=== PATIENT | male | born 1960 | race Caucasian/White ===

== ENCOUNTER 2019-03-12 15:39 | Inpatient (IN) | payer MEDICAID ==
[2019-03-12] VITALS (7 sets, daily range): BP systolic 114–154; BP diastolic 98–121; PULSE 95–112; RESP 11–21; Ht 167.6 cm; Wt 65.0 kg
[~2019-03-12] VITALS: Ht 167.6 cm; Wt 65.0 kg
[2019-03-12] MEDS ORDERED: morphine 4 MG/ML VIAL IV STA (16:10)
[2019-03-12] MEDS ORDERED: ONDANSETRON 4 MG INJ IV STA (16:10)
[2019-03-12] MEDS ORDERED: SOD CHLORIDE 0.9% 1,000 ML IV STA (16:10)
[2019-03-12] MEDS ORDERED: SODIUM CHLORIDE 0.9% 1L BAG IV* STA (16:51)
[2019-03-12] MEDS ORDERED: CEFEPIME 2GM/50 ML (PMX) 50 ML IVPB STA (16:51)
[2019-03-12] MEDS ORDERED: VANCOMYCIN 1 GM (PMX) 250 ML IVPB ONE (17:00)
[2019-03-12] MEDS ORDERED: IOHEXOL 300MG/ML 150 ML BTL ONE (17:03)
[2019-03-12] MEDS ORDERED: SOD CHLORIDE 0.9% 100 ML ONE (17:03)
[2019-03-12] MEDS ORDERED: VANCOMYCIN IV PER PHARMACY XX SCH (18:00)
[2019-03-12] MEDS ORDERED: LORAZEPAM 2 MG INJ IV ONE (18:00)
[2019-03-12] MEDS ORDERED: HYDROCODONE/APAP (5/325) TAB PO PRN (18:00)
[2019-03-12] MEDS ORDERED: NACL 0.9% 3 ML SYG IV SCH (18:00)
[2019-03-12] MEDS ORDERED: morphine 2 MG INJ IV PRN ×2 (18:00→22:00)
[2019-03-12] MEDS ORDERED: ACETAMINOPHEN 325 MG TAB PO PRN (18:00)
[2019-03-12] MEDS ORDERED: ONDANSETRON 4 MG INJ IV PRN ×3 (18:00→22:00)
[2019-03-12] MEDS ORDERED: PIPER-TAZO 3.375 GM IV (PMX) 100 ML IVPB STA (18:29)
[2019-03-12] MEDS ORDERED: ACETAMINOPHEN 1000MG/100ML IV 100 ML IVPB PRN (18:30)
[2019-03-12] MEDS ORDERED: PIPER-TAZO 3.375 GM IV (PMX) 100 ML IVPB SCH (18:30)
--- NOTE | 2019-03-12 18:38 | ERD ---
ER Documentation Chief Complaint Chief Complaint BIB RA FOR EVAL OF AP NO BM X 3 DAYS. HPI This is a 58-year-old male that has no past medical history. The patient indicates he is been having severe abdominal pain for the past 4 days. He has not had a bowel movement but states he is also not had any oral intake. He states the pain is 10 out of 10 in intensity. The pain is worse when he moves. He denies any recent or remote blunt or penetrating abdominal wall trauma. 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 He had decreased urinary output. He did not take any analgesic medication prior to arrival. He indicated he has a similar onset of pain roughly 1 year ago but it spontaneously resolved. The pain does not radiate to the back. He has no chest pain. He has no shortness of breath. ROS All systems reviewed and are negative except as per history of present illness. Allergies Allergies: Coded Allergies: No Known Allergy (Unverified , 03/12/19) PMhx/Soc History of Surgery: No Anesthesia Reaction: No Hx Neurological Disorder: No Hx Respiratory Disorders: No Hx Cardiac Disorders: No Hx Psychiatric Problems: No Hx Miscellaneous Medical Probl: No Hx Alcohol Use: No Hx Substance Use: Yes (Marijuana, meth) Hx Tobacco Use: Yes Smoking Status: Current every day smoker Physical Exam Vitals Vital Signs Date Temp Pulse Resp B/P (MAP) Pulse Ox O2 O2 Flow FiO2 Time Delivery Rate 03/12/19 98.1 145 17 139/108 99 Room Air 16:14 (118) 03/12/19 98.1 89 17 134/89 99 15:49 (104) Physical Exam Constitutional:Well-developed. Disheveled HEENT:Normocephalic. Atraumatic.Pupils were equal round reactive to light. Very dry mucous membranes.No tonsillar exudates. Neck: No nuchal rigidity. No lymphadenopathy. No posterior cervical spine tenderness or step-offs. Respiratory: Not using accessory muscles of respiration.Lungs were clear to auscultation bilaterally. No rhonchi. No rales. No wheezing. Cardiovascular: Tachycardic with regular rhythm.No murmurs. No rubs were appreciated.S1, S2 normal. Distal pulses are palpable 2+ bilaterally. GI: Abdomen was soft. Diffuse abdominal tenderness. No pulsatile abdominal masses or bruits. Voluntary guarding. Positive rebound. Hypoactive bowel sounds per Muscle skeletal: Full range of motion of both the upper and lower extremities bilaterally.Normal muscle tone.No assymetrical calf tenderness or swelling. Skin: No petechia, no purpura. No lesions on the palms or the soles of the feet. No maculopapular rash. NEURO: Patient was alert, awake, orientated x3.No facial droop. Gait observed and normal with no ataxia.Speech had regular rate and rhythm. No focal neurological deficits. Result Diagram: 03/12/19 1625 03/12/19 1625 Results 24 hrs Laboratory Tests Test 03/12/19 16:25 03/12/19 16:52 03/12/19 17:01 White Blood Count 25.3 10^3/ul Red Blood Count 3.90 10^6/ul Hemoglobin 11.5 g/dl Hematocrit 35.0 % Mean Corpuscular Volume 89.7 fl Mean Corpuscular Hemoglobin 29.5 pg Mean Corpuscular 32.9 g/dl Hemoglobin Concent Red Cell Distribution Width 14.9 % Platelet Count 485 10^3/UL Mean Platelet Volume 9.4 fl Immature Granulocytes % 0.500 % Neutrophils % % Segmented Neutrophils % (Manual) 74 % Band Neutrophils % (Manual) 7 % Lymphocytes % % Lymphocytes % (Manual) 14 % Monocytes % % Monocytes % (Manual) 5 % Eosinophils % % Basophils % % Nucleated Red Blood Cells % 0.0 /100WBC Immature Granulocytes # 0.130 10^3/ul Neutrophils # 10^3/ul Neutrophils # (Manual) 19.2 10^3/ul Band Neutrophils # 1.7 10^3/ul Lymphocytes (Manual) 3.5 10^3/ul Lymphocytes # 10^3/ul Monocytes # 10^3/ul Monocytes # (Manual) 1.2 10^3/ul Eosinophils # 10^3/ul Basophils # 10^3/ul Nucleated Red Blood Cells # 10^3/ul Platelet Estimate NORMAL Polychromasia 1+ Poikilocytosis 2+ Macrocytosis 1+ Sodium Level 137 mmol/L Potassium Level 3.4 mmol/L Chloride Level 97 mmol/L Carbon Dioxide Level 25 mmol/L Anion Gap 15 Blood Urea Nitrogen 28 mg/dl Creatinine 1.00 mg/dl Est Glomerular Filtrat Rate mL/min > 60 mL/min Glucose Level 187 mg/dl Calcium Level 9.4 mg/dl Total Bilirubin 0.4 mg/dl Direct Bilirubin 0.00 mg/dl Indirect Bilirubin 0.4 mg/dl Aspartate Amino Transf (AST/SGOT) 24 IU/L Alanine 20 IU/L Aminotransferase (ALT/SGPT) Alkaline Phosphatase 69 IU/L Troponin I < 0.012 ng/ml Total Protein 7.2 g/dl Albumin 4.4 g/dl Globulin 2.80 g/dl Albumin/Globulin Ratio 1.57 Amylase Level 312 U/L Lipase 704 U/L Prothrombin Time 12.9 Sec Prothrombin Time Ratio 1.0 INR International Normalized Ratio 0.96 Activated Partial Thromboplast Pending Time POC Venous Lactate 3.2 mmol/L Current Medications Medications Dose Sig/Gaurav Start Time Status Last (Trade) Ordered Route PRN Stop Time Admin Dose Reason Admin Sodium 1,000 ml @ Q1H STAT 03/12/19 DC 03/12/19 Chloride 1,000 mls/hr IV 16:10 16:26 03/12/19 17:09 Morphine 4 mg ONCE STAT 03/12/19 DC 03/12/19 Sulfate IV 16:10 16:27 (morphine) 03/12/19 16:13 Ondansetron 4 mg ONCE STAT 03/12/19 DC 03/12/19 HCl (Zofran IV 16:10 16:27 Inj) 03/12/19 16:13 Sodium 1,950 ml BOLUS OVER 2 03/12/19 DC 03/12/19 Chloride HOURS STAT 16:51 17:17 (NS) IV* 03/12/19 16:53 Cefepime HCl 50 ml @ ONCE STAT 03/12/19 DC 03/12/19 100 mls/hr IVPB 16:51 17:36 03/12/19 17:20 Vancomycin 250 ml @ ONCE ONCE 03/12/19 03/12/19 HCl 125 mls/hr IVPB 17:00 17:37 03/12/19 18:59 IV Flush 10 ml STK-MED 03/12/19 DC 03/12/19 (NS 10 ml) ONCE .ROUTE 17:03 17:37 03/12/19 17:04 Sodium 100 ml @ ud STK-MED 03/12/19 DC 03/12/19 Chloride ONCE .ROUTE 17:03 17:37 03/12/19 17:04 Iohexol 150 ml STK-MED 03/12/19 DC 03/12/19 (Omnipaque ONCE .ROUTE 17:03 17:37 300mg/ ml) 03/12/19 17:04 Lorazepam 1 mg ONCE ONCE 03/12/19 DC (Ativan) IV 18:00 03/12/19 18:01 Piperacillin 100 ml @ Q6 IVPB 03/12/19 Sod/ 200 mls/hr 18:30 Tazobactam Sod Vancomycin VANCOMYCIN PER 03/12/19 UNV HCl (Vanco PER PHARMACY PROTOCOL XX 18:00 Iv Per Pharmacy) Potassium 100 ml @ Q2H IVPB 03/12/19 Chloride 50 mls/hr 18:00 03/12/19 21:59 Sodium 1,000 ml @ Q8H IV 03/12/19 Chloride 125 mls/hr 18:00 IV Flush 3 ml PER 03/12/19 (NS 3 ml) PROTOCOL IV 18:00 Ondansetron 4 mg Q6H PRN 03/12/19 HCl (Zofran IV 18:00 Inj) NAUSEA/VOMITI NG 650 mg Q6H PRN 03/12/19 Acetaminophen PO .PAIN 1-3 18:00 (Tylenol OR TEMP Tab) 1 tab Q6H PRN 03/12/19 Acetaminophen PO .PAIN 4-6 18:00 / Hydrocodone Bitart ([place] (5/325)) Morphine 2 mg Q4H PRN 03/12/19 Sulfate IV .PAIN 18:00 (morphine) 7-10 100 ml @ Q6H PRN 03/12/19 Acetaminophen 400 mls/hr IVPB pain or 18:30 fever above 03/13/19 18:29 100.5F Procedures/MDM This patient presented to the emergency department with abdominal pain and was seen and evaluated by myself. My differential diagnosis included but was not limited to abdominal aortic aneurysm, appendicitis, pancreatitis, perforated peptic ulcer, perforated viscus, Boerhaaves syndrome or visceral pain such as diverticulitis, DKA, esophagitis, hepatitis or bowel obstruction. The patient was placed on a quality assurance monitor final, continuous pulse oximetry, and IV access was established by nursing staff. The patient immediately was given intravenous morphine and Zofran for analgesia control as well as a liter bolus of normal saline. 12 Lead EKG tracing ordered and reviewed by myself showed: Sinus tachycardia 131 bpm and no arrhythmia. NE interval normal. QRS duration normal. No ST segment elevation No ST segment depression. No changes consistent with acute ischemia. The patient's ancillary laboratory work showed significant leukocytosis with white blood count of 25,000. At this time the patient had positive sirs criteria. POC lactate was elevated and the patient was treated for sepsis of unclear etiology. Patient's infectious symptoms have not stabilized and the patient is at risk of rapid decompensation. The patient will be admitted for careful hydration, antibiotic therapy, and infectious source control. Severe Sepsis Assessment: Infectious Source: Unknown End organ damage indicated by: Lactate > 2.0 mmol/L Severe Sepsis Managment: Blood Cultures X 2 before broad spectrum antibiotics initiated within 3 hours of recognition. 30 ml/kg NS bolus Completed Initial Lactate: 3.2 Repeat Lactate pending I considered further perfusion assessment with CVP measurement, SCVO2, bedside ultrasound volume assessment, passive leg raise, trial of further fluid bolus. And preceded with IV fluids Chest radiograph showed no infiltrates or pneumothorax and no free air underneath the diaphragm. CT scan of the abdomen indicate the patient had pneumoperitoneum. This was present in the upper abdomen that could likely be result of a ruptured viscus. Diffuse ascites was seen with peritoneal enhancement. The patient already received vancomycin and cefepime but was started on broad-spectrum antibiotics which included Zosyn. At this time 2 large-bore IV catheters were placed. The patient was alert and awake. I spoke with the surgeon Dr. Artis. The patient will be going to the operating room at 8 PM. He will be admitted under the care of on day to the intensive care unit in serious condition with anticipated stay of greater than 2-midnights. Critical Care: Time: 95 minutes Treatments/Evaluations: Close monitoring and treatment of unstable vital signs, cardiorespiratory, and neurologic status, while maintaining tight balance of fluid, respiratory, and cardiac interventions. Time does not include performing any of the above billable procedures. Departure Diagnosis: Primary Impression: Pneumoperitoneum Additional Impressions: Perforated abdominal viscus Sepsis Sepsis type: sepsis due to unspecified organism Qualified Codes: A41.9 - Sepsis, unspecified organism Condition: Serious GUY FABIAN MD Mar 12, 2019 18:38
[2019-03-12] MEDS: POTASSIUM CHLORIDE 100 ML IVPB SCH ×2 (19:50→20:00)
[2019-03-12] MEDS ORDERED: PROPOFOL 20 ML ONE (20:09)
[2019-03-12] MEDS ORDERED: FENTAnyl 50 MCG/ML VIAL ONE ×2 (20:09→21:55)
[2019-03-12] MEDS ORDERED: SUCCINYLCHOLINE CHLORIDE 100 MG/5 ML SYG IV ONE (20:09)
[2019-03-12] MEDS ORDERED: ROCURONIUM 50 MG INJ ONE (20:09)
[2019-03-12] MEDS ORDERED: LIDOCAINE 100 MG SYRINGE ONE (20:09)
[2019-03-12] MEDS ORDERED: MIDAZOLAM 1 MG/ML 2 ML INJ ONE (20:10)
--- NOTE | 2019-03-12 20:22 | PREAC ---
Date/Time of Note Date/Time of Note DATE: 03/12/19 TIME: 20:20 Anesthesia Eval and Record Evaluation Time Pre-Procedure Interview DATE: 03/12/19 TIME: 20:20 Age 58 Sex male NPO: 8 hrs Preoperative diagnosis perforated viscus Planned procedure exploratory laparotomy Past Medical History Past Medical History: Includes Cardio: HTN Recreational drugs: Marijuana, Other (methamphetamine. Pt looks to be going through withdrawal) Surgery & Anesthesia Issues No known issue Meds Anticoagulation: No Beta Racquel within 24 hr: No Reason Beta Racquel not given: Pt. not on B-Racquel Current Medications Vancomycin HCl (Vanco Iv Per Pharmacy) VANCOMYCIN PER PHARMACY PER PROTOCOL XX ; Start 03/12/19 at 18:00 Potassium Chloride 100 ml @ 50 mls/hr Q2H IVPB Last administered on 03/12/19at 19:50; Admin Dose 50 MLS/HR; Start 03/12/19 at 18:00; Stop 03/12/19 at 21:59 Sodium Chloride 1,000 ml @ 125 mls/hr Q8H IV ; Start 03/12/19 at 18:00 IV Flush (NS 3 ml) 3 ml PER PROTOCOL IV ; Start 03/12/19 at 18:00 Ondansetron HCl (Zofran Inj) 4 mg Q6H PRN IV NAUSEA/VOMITING; Start 03/12/19 at 18:00 Acetaminophen (Tylenol Tab) 650 mg Q6H PRN PO .PAIN 1-3 OR TEMP; Start 03/12/19 at 18:00 Acetaminophen/ Hydrocodone Bitart ([place] (5/325)) 1 tab Q6H PRN PO .PAIN 4-6; Start 03/12/19 at 18:00 Morphine Sulfate (morphine) 2 mg Q4H PRN IV .PAIN 7-10; Start 03/12/19 at 18:00 Acetaminophen 100 ml @ 400 mls/hr Q6H PRN IVPB pain or fever above 100.5F; Start 03/12/19 at 18:30; Stop 03/13/19 at 18:29 Vancomycin/Sodium Chloride 250 ml @ 125 mls/hr Q12H IVPB ; Start 03/13/19 at 03:00 Piperacillin Sod/ Tazobactam Sod 100 ml @ 200 mls/hr Q6 IVPB ; Start 03/13/19 at 00:00 Meds reviewed: Yes Allergies Coded Allergies: No Known Allergy (Unverified , 03/12/19) Allergies Reviewed: Yes Labs/Studies Labs Reviewed: Reviewed by anesthesiologist Result Diagram: 03/12/19 1625 03/12/19 1625 Laboratory Tests 03/12/19 16:25 test: N/A Pre-procedure Exam Last vitals Vital Signs Date Temp Pulse Resp B/P (MAP) Pulse Ox O2 O2 Flow FiO2 Time Delivery Rate 03/12/19 98.1 145 17 139/108 99 Room Air 16:14 (118) Airway: Adequate mouth opening, Adequate thyromental dist Mallampati: Mallampati II Teeth: Abnormal Lung: Abnormal Heart: Abnormal ASA Physical Status ASA physical status: 3 Emergency: E Planned Anesthetic General/MAC: ETT Nerve block: TAP (bilateral) Pre-operative Attestations Prior to commencing anesthesia and surgery, the patient was re-evaluated, there was verification of: *The patient's identity *The results of appropriate recent lab work and preoperative vital signs *The above evaluation not changing prior to induction *Anesthetic plan, risk benefits, alternative and complications discussed with patient/family; questions answered; patient/family understands, accepts and wishes to proceed. AZUL STEPHENSON Mar 12, 2019 20:22
--- NOTE | 2019-03-12 20:28 | CONS ---
Assessment/Plan Assessment/Plan Assessment/Plan (Daily) Perforated viscus with pneumoperitoneum Plan: Urgent exploratory laparotomy. Findings at surgery will dictate specifically the procedure. This will arrange anywhere from a plication of ulcer to bowel resection with possible colostomy. I have discussed the procedure, indications, alternatives and risks with the patient who has given an informed consent. Consultation Date/Type/Reason Admit Date/Time Mar 12, 2019 at 18:29 Date of Consultation: Mar 12, 2019 Type of Consult General surgery Reason for Consultation Perforated viscus and pneumoperitoneum Date/Time of Note DATE: 03/12/19 TIME: 20:24 Hx of Present Illness The patient is a 58-year-old gentleman who uses crystal meth. Presents with severe abdominal pain. He was noted to be diffusely tender in the emergency room with a white count of 25,000. A CT scan shows a pneumoperitoneum. Review of systems: Head ears eyes nose and throat: Unremarkable Pulmonary: No history of asthma, pneumonia or shortness of breath Cardiac: No history of chest pain IA or arrhythmia Abdomen: As in the HPI : Asymptomatic Past Medical History Medical History: no pertinent history Medications Current Medications Vancomycin HCl (Vanco Iv Per Pharmacy) VANCOMYCIN PER PHARMACY PER PROTOCOL XX ; Start 03/12/19 at 18:00 Potassium Chloride 100 ml @ 50 mls/hr Q2H IVPB Last administered on 03/12/19at 19:50; Admin Dose 50 MLS/HR; Start 03/12/19 at 18:00; Stop 03/12/19 at 21:59 Sodium Chloride 1,000 ml @ 125 mls/hr Q8H IV ; Start 03/12/19 at 18:00 IV Flush (NS 3 ml) 3 ml PER PROTOCOL IV ; Start 03/12/19 at 18:00 Ondansetron HCl (Zofran Inj) 4 mg Q6H PRN IV NAUSEA/VOMITING; Start 03/12/19 at 18:00 Acetaminophen (Tylenol Tab) 650 mg Q6H PRN PO .PAIN 1-3 OR TEMP; Start 03/12/19 at 18:00 Acetaminophen/ Hydrocodone Bitart ([place] (5/325)) 1 tab Q6H PRN PO .PAIN 4-6; Start 03/12/19 at 18:00 Morphine Sulfate (morphine) 2 mg Q4H PRN IV .PAIN 7-10; Start 03/12/19 at 18:00 Acetaminophen 100 ml @ 400 mls/hr Q6H PRN IVPB pain or fever above 100.5F; Start 03/12/19 at 18:30; Stop 03/13/19 at 18:29 Vancomycin/Sodium Chloride 250 ml @ 125 mls/hr Q12H IVPB ; Start 03/13/19 at 03:00 Piperacillin Sod/ Tazobactam Sod 100 ml @ 200 mls/hr Q6 IVPB ; Start 03/13/19 at 00:00 Hydromorphone HCl (Dilaudid) 0.2 mg PACU PRN IV MILD PAIN 1-3; Start 03/12/19 at 20:30; Status UNV Hydromorphone HCl (Dilaudid) 0.4 mg PACU PRN IV MOD PAIN 4-6; Start 03/12/19 at 20:30; Status UNV Hydromorphone HCl (Dilaudid) 0.6 mg PACU PRN IV SEVERE PAIN 7-10; Start 03/12/19 at 20:30; Status UNV Fentanyl (Sublimaze) 25 mcg PACU ORDER PRN IV MILD PAIN 1-3; Start 03/12/19 at 20:30; Status UNV Fentanyl (Sublimaze) 50 mcg PACU ORDER PRN IV MOD PAIN 4-6; Start 03/12/19 at 20:30; Status UNV Fentanyl (Sublimaze) 75 mcg PACU ORDER PRN IV SEVERE PAIN 7-10; Start 03/12/19 at 20:30; Status UNV Ondansetron HCl (Zofran Inj) 4 mg PACU ORDER PRN IV NAUSEA/VOMITING; Start 03/12/19 at 20:30; Status UNV Metoclopramide HCl (Reglan) 10 mg PACU ORDER PRN IV NAUSEA/VOMITING; Start 03/12/19 at 20:30; Status UNV Labetalol HCl (Labetalol) 5 mg PACU ORDER PRN IV HIGH BLOOD PRESSURE; Start 03/12/19 at 20:30; Status UNV Hydralazine HCl (Apresoline) 5 mg PACU ORDER PRN IV HIGH BLOOD PRESSURE; Start 03/12/19 at 20:30; Status UNV Albuterol (Proventil 0.083% (Neb)) 2.5 mg PACU ORDER PRN HHN .WHEEZING; Start 03/12/19 at 20:30; Status UNV Meperidine HCl (Demerol) 25 mg PACU ORDER PRN IV .RIGORS; Start 03/12/19 at 20:30; Status UNV Diphenhydramine HCl (Benadryl) 25 mg PACU ORDER PRN IV .PRURITUS; Start 03/12/19 at 20:30; Status UNV Allergies: Coded Allergies: No Known Allergy (Unverified , 03/12/19) Past Surgical History Past Surgical Hx: no surgical history Family History Significant Family History: no pertinent family hx Social History Smoking Status: Current every day smoker Drug Use: other (Crystal meth) Exam/Review of Systems Exam Vitals Vital Signs Date Temp Pulse Resp B/P (MAP) Pulse Ox O2 O2 Flow FiO2 Time Delivery Rate 03/12/19 98.1 145 17 139/108 99 Room Air 16:14 (118) Constitutional: alert, oriented Psych: no complaints Head: normocephalic Eyes: nl conjunctiva ENMT: nl external ears & nose Neck: supple Respiratory: clear to auscultation Cardiovascular: regular rate and rhythm Gastrointestinal: firm, tender (Diffuse tenderness with guarding and rebound) Musculoskeletal: nl extremities to inspection Extremities: normal pulses Neurological: MOLD CHIPPER II-XII intact Skin: nl turgor Results Result Diagram: 03/12/19 1625 03/12/19 1625 Results 24hrs Laboratory Tests Test 03/12/19 16:25 03/12/19 16:52 03/12/19 17:01 03/12/19 19:08 White Blood Count 25.3 H Red Blood Count 3.90 L Hemoglobin 11.5 L Hematocrit 35.0 L Mean Corpuscular 89.7 Volume Mean Corpuscular 29.5 Hemoglobin Mean Corpuscular 32.9 Hemoglobin Concent Red Cell 14.9 H Distribution Width Platelet Count 485 H Mean Platelet Volume 9.4 Immature 0.500 H Granulocytes % Neutrophils % Segmented 74 Neutrophils % (Manual) Band Neutrophils % 7 H (Manual) Lymphocytes % Lymphocytes % 14 L (Manual) Monocytes % Monocytes % (Manual) 5 Eosinophils % Basophils % Nucleated Red Blood 0.0 Cells % Immature 0.130 H Granulocytes # Neutrophils # Neutrophils # 19.2 H (Manual) Band Neutrophils # 1.7 H Lymphocytes (Manual) 3.5 H Lymphocytes # Monocytes # Monocytes # (Manual) 1.2 H Eosinophils # Basophils # Nucleated Red Blood Cells # Platelet Estimate NORMAL Polychromasia 1+ Poikilocytosis 2+ Macrocytosis 1+ Sodium Level 137 Potassium Level 3.4 L Chloride Level 97 Carbon Dioxide Level 25 Anion Gap 15 H Blood Urea Nitrogen 28 H Creatinine 1.00 Est Glomerular > 60 Filtrat Rate mL/min Glucose Level 187 Calcium Level 9.4 Total Bilirubin 0.4 Direct Bilirubin 0.00 Indirect Bilirubin 0.4 Aspartate Amino 24 Transf (AST/SGOT) Alanine 20 Aminotransferase (AL T/SGPT) Alkaline Phosphatase 69 Troponin I < 0.012 Total Protein 7.2 Albumin 4.4 Globulin 2.80 Albumin/Globulin 1.57 Ratio Amylase Level 312 H Lipase 704 H Ethyl Alcohol Level < 10.0 H Prothrombin Time 12.9 Prothrombin Time 1.0 Ratio INR International 0.96 Normalized Ratio Activated 22.4 L Partial Thromboplast Time POC Venous Lactate 3.2 *H 3.3 *H Medications Medication Current Medications Vancomycin HCl (Vanco Iv Per Pharmacy) VANCOMYCIN PER PHARMACY PER PROTOCOL XX ; Start 03/12/19 at 18:00 Potassium Chloride 100 ml @ 50 mls/hr Q2H IVPB Last administered on 03/12/19at 19:50; Admin Dose 50 MLS/HR; Start 03/12/19 at 18:00; Stop 03/12/19 at 21:59 Sodium Chloride 1,000 ml @ 125 mls/hr Q8H IV ; Start 03/12/19 at 18:00 IV Flush (NS 3 ml) 3 ml PER PROTOCOL IV ; Start 03/12/19 at 18:00 Ondansetron HCl (Zofran Inj) 4 mg Q6H PRN IV NAUSEA/VOMITING; Start 03/12/19 at 18:00 Acetaminophen (Tylenol Tab) 650 mg Q6H PRN PO .PAIN 1-3 OR TEMP; Start 03/12/19 at 18:00 Acetaminophen/ Hydrocodone Bitart ([place] (5/325)) 1 tab Q6H PRN PO .PAIN 4-6; Start 03/12/19 at 18:00 Morphine Sulfate (morphine) 2 mg Q4H PRN IV .PAIN 7-10; Start 03/12/19 at 18:00 Acetaminophen 100 ml @ 400 mls/hr Q6H PRN IVPB pain or fever above 100.5F; Start 03/12/19 at 18:30; Stop 03/13/19 at 18:29 Vancomycin/Sodium Chloride 250 ml @ 125 mls/hr Q12H IVPB ; Start 03/13/19 at 03:00 Piperacillin Sod/ Tazobactam Sod 100 ml @ 200 mls/hr Q6 IVPB ; Start 03/13/19 at 00:00 Hydromorphone HCl (Dilaudid) 0.2 mg PACU PRN IV MILD PAIN 1-3; Start 03/12/19 at 20:30; Status UNV Hydromorphone HCl (Dilaudid) 0.4 mg PACU PRN IV MOD PAIN 4-6; Start 03/12/19 at 20:30; Status UNV Hydromorphone HCl (Dilaudid) 0.6 mg PACU PRN IV SEVERE PAIN 7-10; Start 03/12/19 at 20:30; Status UNV Fentanyl (Sublimaze) 25 mcg PACU ORDER PRN IV MILD PAIN 1-3; Start 03/12/19 at 20:30; Status UNV Fentanyl (Sublimaze) 50 mcg PACU ORDER PRN IV MOD PAIN 4-6; Start 03/12/19 at 20:30; Status UNV Fentanyl (Sublimaze) 75 mcg PACU ORDER PRN IV SEVERE PAIN 7-10; Start 03/12/19 at 20:30; Status UNV Ondansetron HCl (Zofran Inj) 4 mg PACU ORDER PRN IV NAUSEA/VOMITING; Start 03/12/19 at 20:30; Status UNV Metoclopramide HCl (Reglan) 10 mg PACU ORDER PRN IV NAUSEA/VOMITING; Start 03/12/19 at 20:30; Status UNV Labetalol HCl (Labetalol) 5 mg PACU ORDER PRN IV HIGH BLOOD PRESSURE; Start 03/12/19 at 20:30; Status UNV Hydralazine HCl (Apresoline) 5 mg PACU ORDER PRN IV HIGH BLOOD PRESSURE; Start 03/12/19 at 20:30; Status UNV Albuterol (Proventil 0.083% (Neb)) 2.5 mg PACU ORDER PRN HHN .WHEEZING; Start 03/12/19 at 20:30; Status UNV Meperidine HCl (Demerol) 25 mg PACU ORDER PRN IV .RIGORS; Start 03/12/19 at 20:30; Status UNV Diphenhydramine HCl (Benadryl) 25 mg PACU ORDER PRN IV .PRURITUS; Start 03/12/19 at 20:30; Status UNV SONAL TRUONG MD Mar 12, 2019 20:28
[2019-03-12] MEDS ORDERED: LABETALOL HCL 20MG INJ IV PRN (20:30)
[2019-03-12] MEDS ORDERED: DIPHENHYDRAMINE 50 MG INJ IV PRN (20:30)
[2019-03-12] MEDS ORDERED: hydrALAzine 20 MG INJ IV PRN (20:30)
[2019-03-12] MEDS ORDERED: FENTAnyl 50 MCG/ML VIAL IV PRN ×3 (20:30)
[2019-03-12] MEDS ORDERED: METOCLOPRAMIDE 10 MG INJ IV PRN (20:30)
[2019-03-12] MEDS ORDERED: MEPERIDINE 25 MG INJ IV PRN (20:30)
[2019-03-12] MEDS ORDERED: HYDROmorphONE 1 MG/5 ML IV SYRINGE IV PRN ×3 (20:30)
[2019-03-12] MEDS ORDERED: ALBUTEROL 0.083% (NEB) 2.5 MG/3 ML AMP HHN PRN (20:30)
[2019-03-12] MEDS ORDERED: PHENYLephrine (100 MCG/ML) 10ML SYG ONE (20:38)
[2019-03-12] MEDS ORDERED: VASOPRESSIN 20 UNITS INJ ONE (20:42)
[2019-03-12] MEDS ORDERED: METHYLENE BLUE 50 MG/10 ML AMPUL ONE (21:16)
[2019-03-12] MEDS ORDERED: SUGAMMADEX SODIUM 200 MG/2 ML VIAL IV ONE (21:32)
[2019-03-12] MEDS ORDERED: ROPIVACAINE 0.5 % 30 ML VIAL ONE (21:37)
--- NOTE | 2019-03-12 21:48 | OPR ---
Date/Time of Note Date/Time of Note DATE: 03/12/19 TIME: 21:43 Operative Report Procedure Date: Mar 12, 2019 Preoperative Diagnosis Perforated viscus and pneumoperitoneum Postoperative Diagnosis Perforated duodenal ulcer with pneumoperitoneum Operation/Procedure Performed Oversew and plication of perforated duodenal ulcer Surgeon Sonal Truong MD Bank Cashier None Anesthesia Type: general Anesthesiologist: AZUL STEPHENSON Estimated Blood Loss: minimal Transfusion none Specimen Culture and sensitivity Grafts/Implants none Tubes/Drains #19 Round Luisito drain Complications none Pt Condition Post Procedure: stable Disposition: other (ICU) Indications Peritonitis Procedure Description After satisfactory general endotracheal anesthesia was achieved, the abdomen was entered through upper vertical midline incision. A moderate amount of turgid fluid was encountered. This was cultured aerobically and anaerobically and suctioned off. The source of the fluid was a 6 mm perforation of the anterior duodenum. This was primarily closed with several sutures of interrupted full- thickness 3-0 silk suture. Next a tongue of omentum was placed on the suture line as a patch and was secured in place with the tails of the silk sutures. The abdomen was then irrigated. The stomach was then filled with 250 cc of methylene blue and water. The resultant plication and patch was watertight. Through a separate stab in the right upper quadrant and #19 round Luisito drain was placed and secured to skin with 3-0 silk. The abdomen was closed en harris with 2 running sutures of #2 Vicryl. Skin was closed with tiera. Sponge, needle, and instrument counts were reported as correct x2. SONAL TRUONG MD Mar 12, 2019 21:48
[2019-03-12] MEDS ORDERED: OXYCODONE/ACETAMINOPHEN (5/325) TAB PO PRN ×2 (22:00)
[2019-03-12] MEDS: PIPER-TAZO 3.375 GM IV (PMX) 100 ML IVPB SCH (23:16)
[2019-03-12] MEDS: SOD CHLORIDE 0.9% 1,000 ML IV SCH (23:16)
[2019-03-12] MEDS ORDERED: POTASSIUM CHLORIDE 100 ML IVPB SCH (23:30)
--- NOTE | 2019-03-12 23:38 | HP ---
Date/Time of Note Date/Time of Note DATE: 03/12/19 TIME: 23:38 Assessment/Plan VTE Prophylaxis SCD applied (from Nsg): Yes Pharmacological prophylaxis: NA/contraindicated Pharm contraindication: other (Patient has had a surgery for rupture of duodenal ulcer ) Lines/Catheters IV Catheter Type (from Nrsg): A Line Urinary Cath still in place: Yes Reason Cath still needed: terminal illness/intractable pain Assessment/Plan Assessment/Plan 1. Perforated duodenal ulcer and pneumoperitoneum: Status post a surgical repair. The patient is in stable condition -Patient has not passed gas yet. Will start diet when appropriate -Follow-up surgery recommendations 2. SIRS, with possible sepsis: See #1 -IV antibiotic -Follow culture results Result Diagram: 03/12/19 1625 03/12/19 1625 Results 24hrs Laboratory Tests Test 03/12/19 16:25 03/12/19 16:52 03/12/19 17:01 03/12/19 19:08 White Blood Count 25.3 H Red Blood Count 3.90 L Hemoglobin 11.5 L Hematocrit 35.0 L Mean Corpuscular 89.7 Volume Mean Corpuscular 29.5 Hemoglobin Mean Corpuscular 32.9 Hemoglobin Concent Red Cell 14.9 H Distribution Width Platelet Count 485 H Mean Platelet Volume 9.4 Immature 0.500 H Granulocytes % Neutrophils % Segmented 74 Neutrophils % (Manual) Band Neutrophils % 7 H (Manual) Lymphocytes % Lymphocytes % 14 L (Manual) Monocytes % Monocytes % (Manual) 5 Eosinophils % Basophils % Nucleated Red Blood 0.0 Cells % Immature 0.130 H Granulocytes # Neutrophils # Neutrophils # 19.2 H (Manual) Band Neutrophils # 1.7 H Lymphocytes (Manual) 3.5 H Lymphocytes # Monocytes # Monocytes # (Manual) 1.2 H Eosinophils # Basophils # Nucleated Red Blood Cells # Platelet Estimate NORMAL Polychromasia 1+ Poikilocytosis 2+ Macrocytosis 1+ Sodium Level 137 Potassium Level 3.4 L Chloride Level 97 Carbon Dioxide Level 25 Anion Gap 15 H Blood Urea Nitrogen 28 H Creatinine 1.00 Est Glomerular > 60 Filtrat Rate mL/min Glucose Level 187 Calcium Level 9.4 Total Bilirubin 0.4 Direct Bilirubin 0.00 Indirect Bilirubin 0.4 Aspartate Amino 24 Transf (AST/SGOT) Alanine 20 Aminotransferase (AL T/SGPT) Alkaline Phosphatase 69 Troponin I < 0.012 Total Protein 7.2 Albumin 4.4 Globulin 2.80 Albumin/Globulin 1.57 Ratio Amylase Level 312 H Lipase 704 H Ethyl Alcohol Level < 10.0 H Prothrombin Time 12.9 Prothrombin Time 1.0 Ratio INR International 0.96 Normalized Ratio Activated 22.4 L Partial Thromboplast Time POC Venous Lactate 3.2 *H 3.3 *H Test 03/12/19 22:34 Lactic Acid Level 2.4 *H HPI/ROS Admit Date/Time Admit Date/Time Mar 12, 2019 at 18:29 Hx of Present Illness This is a 58-year-old male with a history of methamphetamine abuse who presented to ER complaining of abdominal pain for the past 3 days. Pain is been diffuse. In the ER he is found to have pneumoperitoneum and perforated viscus. Initial white count 25,000. Lactic acid was elevated. Patient was taken to the OR and had repair of perforated duodenal ulcer. Patient is currently admitted to ICU postop and is in stable condition. He is asking for food, but he said he has not passed gas even though he wants to. His abdomen however soft with hypoactive bowel sounds. PMH/Family/Social Past Medical History Medical History: no pertinent history, other (See HPI) Medications Current Medications Vancomycin HCl (Vanco Iv Per Pharmacy) VANCOMYCIN PER PHARMACY PER PROTOCOL XX ; Start 03/12/19 at 18:00 Sodium Chloride 1,000 ml @ 125 mls/hr Q8H IV Last administered on 03/12/19at 23:16; Admin Dose 125 MLS/HR; Start 03/12/19 at 18:00 IV Flush (NS 3 ml) 3 ml PER PROTOCOL IV ; Start 03/12/19 at 18:00 Ondansetron HCl (Zofran Inj) 4 mg Q6H PRN IV NAUSEA/VOMITING; Start 03/12/19 at 18:00 Acetaminophen (Tylenol Tab) 650 mg Q6H PRN PO .PAIN 1-3 OR TEMP; Start 03/12/19 at 18:00 Acetaminophen/ Hydrocodone Bitart ([place] (5/325)) 1 tab Q6H PRN PO .PAIN 4-6; Start 03/12/19 at 18:00 Morphine Sulfate (morphine) 2 mg Q4H PRN IV .PAIN 7-10; Start 03/12/19 at 18:00 Acetaminophen 100 ml @ 400 mls/hr Q6H PRN IVPB pain or fever above 100.5F; St art 03/12/19 at 18:30; Stop 03/13/19 at 18:29 Vancomycin/Sodium Chloride 250 ml @ 125 mls/hr Q12H IVPB ; Start 03/13/19 at 03:00 Piperacillin Sod/ Tazobactam Sod 100 ml @ 200 mls/hr Q6 IVPB Last administered on 03/12/19at 23:16; Admin Dose 200 MLS/HR; Start 03/13/19 at 00:00 Hydromorphone HCl (Dilaudid) 0.2 mg PACU PRN IV MILD PAIN 1-3; Start 03/12/19 at 20:30; Stop 03/13/19 at 02:00 Hydromorphone HCl (Dilaudid) 0.4 mg PACU PRN IV MOD PAIN 4-6; Start 03/12/19 at 20:30; Stop 03/13/19 at 02:00 Hydromorphone HCl (Dilaudid) 0.6 mg PACU PRN IV SEVERE PAIN 7-10; Start 03/12/19 at 20:30; Stop 03/13/19 at 02:00 Fentanyl (Sublimaze) 25 mcg PACU ORDER PRN IV MILD PAIN 1-3; Start 03/12/19 at 20:30; Stop 03/13/19 at 02:00 Fentanyl (Sublimaze) 50 mcg PACU ORDER PRN IV MOD PAIN 4-6; Start 03/12/19 at 2 0:30; Stop 03/13/19 at 02:00 Fentanyl (Sublimaze) 75 mcg PACU ORDER PRN IV SEVERE PAIN 7-10; Start 03/12/19 at 20:30; Stop 03/13/19 at 02:00 Ondansetron HCl (Zofran Inj) 4 mg PACU ORDER PRN IV NAUSEA/VOMITING; Start 03/12/19 at 20:30; Stop 03/13/19 at 02:00 Metoclopramide HCl (Reglan) 10 mg PACU ORDER PRN IV NAUSEA/VOMITING; Start 03/12/19 at 20:30; Stop 03/13/19 at 02:00 Labetalol HCl (Labetalol) 5 mg PACU ORDER PRN IV HIGH BLOOD PRESSURE; Start 03/12/19 at 20:30; Stop 03/13/19 at 02:00 Hydralazine HCl (Apresoline) 5 mg PACU ORDER PRN IV HIGH BLOOD PRESSURE; Start 03/12/19 at 20:30; Stop 03/13/19 at 02:00 Albuterol (Proventil 0.083% (Neb)) 2.5 mg PACU ORDER PRN HHN .WHEEZING; Start 03/12/19 at 20:30; Stop 03/13/19 at 02:00 Meperidine HCl (Demerol) 25 mg PACU ORDER PRN IV .RIGORS; Start 03/12/19 at 20:30; Stop 03/13/19 at 02:00 Diphenhydramine HCl (Benadryl) 25 mg PACU ORDER PRN IV .PRURITUS; Start 03/12/19 at 20:30; Stop 03/13/19 at 02:00 Oxycodone/ Acetaminophen (Percocet (5/ 325)) 1 tab Q4H PRN PO .MILD PAIN (1-3); Start 03/12/19 at 22:00 Oxycodone/ Acetaminophen (Percocet (5/ 325)) 2 tab Q4H PRN PO .MODERATE PAIN (4-6); Start 03/12/19 at 22:00 Ondansetron HCl (Zofran Inj) 4 mg Q6H PRN IV NAUSEA/VOMITING; Start 03/12/19 at 22:00 Pantoprazole (Protonix Iv) 40 mg Q12 ONCE IV ; Start 03/13/19 at 09:00; Stop 03/13/19 at 09:01 Potassium Chloride 100 ml @ 50 mls/hr Q2H IVPB ; Start 03/12/19 at 23:30; Stop 03/13/19 at 01:29 Coded Allergies: No Known Allergy (Unverified , 03/12/19) Past Surgical History Past Surgical Hx: other (See HPI) Family History Significant Family History: no pertinent family hx Social History Alcohol Use: occasionally Smoking Status: Current every day smoker Drug Use: other (Crystal meth) Exam/Review of Systems Vital Signs Vitals Vital Signs Date Temp Pulse Resp B/P (MAP) Pulse Ox O2 O2 Flow FiO2 Time Delivery Rate 03/12/19 102 14 117/98 98 22:45 (104) 03/12/19 98.0 22:18 03/12/19 Room Air 22:15 Exam Constitutional: alert, oriented, well developed Head: normocephalic, atraumatic Eyes: EOMI, PERRL Respiratory: clear to auscultation, normal air movement Cardiovascular: other (Tachycardic with regular rhythm) Gastrointestinal: soft, surgical scars Extremities: normal pulses CHERRIE BRAGG MD Mar 12, 2019 23:38
[2019-03-13] VITALS (28 sets, daily range): BP systolic 91–148; BP diastolic 79–110; PULSE 85–109; RESP 13–21
[2019-03-13] MEDS ORDERED: PIPER-TAZO 3.375 GM IV (PMX) 100 ML IVPB SCH
[2019-03-13] MEDS: SOD CHLORIDE 0.9% 1,000 ML IV SCH ×3 (02:00→13:41)
[2019-03-13] MEDS: VANCOMYCIN 750 MG (PMX) 250 ML IVPB SCH ×2 (04:23→15:31)
[2019-03-13] MEDS ORDERED: PANTOPRAZOLE 40 MG INJ IV ONE (06:00)
[2019-03-13] MEDS: PIPER-TAZO 3.375 GM IV (PMX) 100 ML IVPB SCH ×3 (06:24→18:01)
--- NOTE | 2019-03-13 09:30 | PAC ---
Date/Time of Note Date/Time of Note DATE: 03/13/19 TIME: 09:30 Post-Anesthesia Notes Post-Anesthesia Note Last documented vital signs Vital Signs Date Temp Pulse Resp B/P (MAP) Pulse Ox O2 O2 Flow FiO2 Time Delivery Rate 03/13/19 87 08:00 03/13/19 18 140/89 100 Room Air 06:00 (106) 03/13/19 98.8 04:00 Activity: WNL Respiratory function: WNL Cardiovascular function: WNL Mental status: Baseline Pain reasonably controlled: Yes Hydration appropriate: Yes Nausea/Vomiting absent: Yes AZUL STEPHENSON Mar 13, 2019 09:30
--- NOTE | 2019-03-13 09:56 | PN ---
Date/Time of Note Date/Time of Note DATE: 03/13/19 TIME: 09:55 Assessment/Plan VTE Prophylaxis SCD applied (from Nsg): Yes Pharmacological prophylaxis: NA/contraindicated Pharm contraindication: surgical contra Lines/Catheters IV Catheter Type (from Nrsg): A Line Urinary Cath still in place: Yes Reason Cath still needed: other (indicate) Assessment/Plan Hospital Course SUBJECTIVE: Abdominal pain well controlled. OBJECTIVE: Physical Exam General: Adequately build 58 year-old male lying in bed in no apparent distress. HEENT: Normocephalic, atraumatic. Eyes: Anicteric sclerae, conjunctivae clear. ENT: Nasal septum midline, oral mucosa moist. Neck supple, no JVD noticed. Respiratory: Bilaterally clear breath sounds. No use of accessory muscles of respiration. No adventitious breath sounds. Cardiovascular: S1, S2 heard. Regular rate and rhythm. Abdomen: Soft, nontender, and nondistended. Surgical dressing (midline). Genitourinary: Deferred. Extremities: No cyanosis, no clubbing, no edema. Peripheral pulses palpable. Neurologic: Cranial nerves II through XII grossly intact. The patient is awake, alert, and oriented. Skin: Normal skin turgor. No skin rashes. Labs & Vitals per chart ASSESSMENT & PLAN 58-year-old male with history of methamphetamine abuse and no other significant comorbidities who came to the emergency room with abdominal pain with CT suggesting pneumoperitoneum, who was emergently taken to the OR and underwent an oversew and plication of a perforated duodenal ulcer. 1. Perforated duodenal ulcer with pneumoperitoneum. -Status post oversew and plication of perforated duodenal ulcer on 03/04/2019. -Continue pain control. -Initiation of diet as per general surgery. -Continue antimicrobials including coverage for anaerobes. 2. Sepsis with leukocytosis, tachycardia, and lactic acidosis secondary to underlying peritonitis. -Continue empiric antimicrobials including coverage for anaerobes. 3. Polysubstance abuse. -crime prevention worker consult. -Cessation advised. 4. Normocytic anemia. -Etiology unclear. -Monitor H&H closely. 5. Peptic ulcer disease. -Continue PPI. -Needs eventual gastroenterology evaluation including endoscopy. 6. Prediabetes. -Hemoglobin A1c 5.8. -Monitor glycemic trends. 7. Fluids, electrolytes, and nutrition. -Continue IV fluids. 8. DVT prophylaxis. -Bilateral SCDs. 9. Plan. -Continue empiric antimicrobials. -Continue pain control. -Encourage frequent use of incentive spirometry and early ambulation. -Initiation of diet as per general surgery. -Transfer the patient out of ICU once cleared by surgery. The patient was seen in collaboration with Dr. Bowman. Critical care time: 35 minutes. Result Diagram: 03/13/19 0513 03/13/19 0513 Results 24hrs Laboratory Tests Test 03/12/19 16:25 03/12/19 16:52 03/12/19 17:01 03/12/19 19:08 White Blood Count 25.3 H Red Blood Count 3.90 L Hemoglobin 11.5 L Hematocrit 35.0 L Mean Corpuscular 89.7 Volume Mean Corpuscular 29.5 Hemoglobin Mean Corpuscular 32.9 Hemoglobin Concen t Red Cell 14.9 H Distribution Width Platelet Count 485 H Mean Platelet 9.4 Volume Immature 0.500 H Granulocytes % Neutrophils % Segmented 74 Neutrophils % (Manual) Band Neutrophils 7 H % (Manual) Lymphocytes % Lymphocytes % 14 L (Manual) Monocytes % Monocytes % 5 (Manual) Eosinophils % Basophils % Nucleated Red 0.0 Blood Cells % Immature 0.130 H Granulocytes # Neutrophils # Neutrophils # 19.2 H (Manual) Band Neutrophils 1.7 H # Lymphocytes 3.5 H (Manual) Lymphocytes # Monocytes # Monocytes # 1.2 H (Manual) Eosinophils # Basophils # Nucleated Red Blood Cells # Platelet Estimate NORMAL Polychromasia 1+ Poikilocytosis 2+ Macrocytosis 1+ Sodium Level 137 Potassium Level 3.4 L Chloride Level 97 Carbon Dioxide 25 Level Anion Gap 15 H Blood Urea 28 H Nitrogen Creatinine 1.00 Est Glomerular > 60 Filtrat Rate mL/min Glucose Level 187 Calcium Level 9.4 Total Bilirubin 0.4 Direct Bilirubin 0.00 Indirect 0.4 Bilirubin Aspartate Amino 24 Transf (AST/SGOT) Alanine 20 Aminotransferase (ALT/SGPT) Alkaline 69 Phosphatase Troponin I < 0.012 Total Protein 7.2 Albumin 4.4 Globulin 2.80 Albumin/Globulin 1.57 Ratio Amylase Level 312 H Lipase 704 H Ethyl Alcohol < 10.0 H Level Prothrombin Time 12.9 Prothrombin Time 1.0 Ratio INR International 0.96 Normalized Ratio Activated 22.4 L Partial Thrombopl ast Time POC Venous 3.2 *H 3.3 *H Lactate Test 03/12/19 22:34 03/13/19 01:49 03/13/19 04:47 03/13/19 05:13 Lactic Acid Level 2.4 *H 1.9 Urine Color YELLOW Urine Clarity SLIGHTLY CLOUDY A Urine pH 5.0 Urine Specific 1.046 H [place] Urine Ketones NEGATIVE Urine Nitrite NEGATIVE Urine Bilirubin NEGATIVE Urine NEGATIVE Urobilinogen Urine Leukocyte NEGATIVE Esterase Urine Microscopic 2 RBC Urine Microscopic 2 WBC Urine Mucus FEW A Urine Hemoglobin 2+ H Urine Glucose NEGATIVE Urine Total NEGATIVE Protein Urine Opiates POSITIVE Screen Urine NEGATIVE Barbiturates Urine POSITIVE Amphetamines Screen Urine POSITIVE Benzodiazepines Screen Urine Cocaine NEGATIVE Screen Urine POSITIVE Cannabinoids White Blood Count 21.0 H Red Blood Count 3.51 L Hemoglobin 10.4 L Hematocrit 31.4 L Mean Corpuscular 89.5 Volume Mean Corpuscular 29.6 Hemoglobin Mean Corpuscular 33.1 Hemoglobin Concen t Red Cell 14.9 H Distribution Width Platelet Count 416 H Mean Platelet 8.9 Volume Immature 0.700 H Granulocytes % Neutrophils % Segmented 50 Neutrophils % (Manual) Band Neutrophils 41 H % (Manual) Lymphocytes % Lymphocytes % 5 L (Manual) Monocytes % Monocytes % 4 (Manual) Eosinophils % Basophils % Nucleated Red 0.0 Blood Cells % Immature 0.140 H Granulocytes # Neutrophils # Neutrophils # 12.3 H (Manual) Band Neutrophils 8.6 H # Lymphocytes 1.0 (Manual) Lymphocytes # Monocytes # Monocytes # 0.8 (Manual) Eosinophils # Basophils # Nucleated Red Blood Cells # Platelet Estimate NORMAL Poikilocytosis 3+ Anisocytosis 2+ Microcytosis 1+ Macrocytosis 2+ Sodium Level 139 Potassium Level 4.6 Chloride Level 112 H Carbon Dioxide 20 L Level Anion Gap 7 # Blood Urea 25 H Nitrogen Creatinine 0.84 Est Glomerular > 60 Filtrat Rate mL/min Glucose Level 98 # Hemoglobin A1c 5.8 Calcium Level 7.7 L Magnesium Level 1.7 Total Bilirubin 0.3 Direct Bilirubin 0.00 Indirect 0.3 Bilirubin Aspartate Amino 24 Transf (AST/SGOT) Alanine 20 Aminotransferase (ALT/SGPT) Alkaline 38 L Phosphatase Total Protein 5.1 #L Albumin 2.8 #L Globulin 2.30 Albumin/Globulin 1.21 Ratio Triglycerides 39 Level Cholesterol Level 58 L LDL Cholesterol, 10 Calculated HDL Cholesterol 40 Cholesterol/HDL 1.4 Ratio Thyroid Pending Stimulating Hormone (TSH) Exam/Review of Systems Exam Vitals Vital Signs Date Temp Pulse Resp B/P (MAP) Pulse Ox O2 O2 Flow FiO2 Time Delivery Rate 03/13/19 87 08:00 03/13/19 18 140/89 100 Room Air 06:00 (106) 03/13/19 98.8 04:00 Intake and Output 03/12/19 03/12/19 03/13/19 1414:59 22:59 06:59 IntakeIntake Total 1500 ml 1137.5 ml OutputOutput Total 360 ml 654 ml BalanceBalance 1140 ml 483.5 ml Results Results 24hrs Laboratory Tests Test 03/12/19 16:25 03/12/19 16:52 03/12/19 17:01 03/12/19 19:08 White Blood Count 25.3 H Red Blood Count 3.90 L Hemoglobin 11.5 L Hematocrit 35.0 L Mean Corpuscular 89.7 Volume Mean Corpuscular 29.5 Hemoglobin Mean Corpuscular 32.9 Hemoglobin Concen t Red Cell 14.9 H Distribution Width Platelet Count 485 H Mean Platelet 9.4 Volume Immature 0.500 H Granulocytes % Neutrophils % Segmented 74 Neutrophils % (Manual) Band Neutrophils 7 H % (Manual) Lymphocytes % Lymphocytes % 14 L (Manual) Monocytes % Monocytes % 5 (Manual) Eosinophils % Basophils % Nucleated Red 0.0 Blood Cells % Immature 0.130 H Granulocytes # Neutrophils # Neutrophils # 19.2 H (Manual) Band Neutrophils 1.7 H # Lymphocytes 3.5 H (Manual) Lymphocytes # Monocytes # Monocytes # 1.2 H (Manual) Eosinophils # Basophils # Nucleated Red Blood Cells # Platelet Estimate NORMAL Polychromasia 1+ Poikilocytosis 2+ Macrocytosis 1+ Sodium Level 137 Potassium Level 3.4 L Chloride Level 97 Carbon Dioxide 25 Level Anion Gap 15 H Blood Urea 28 H Nitrogen Creatinine 1.00 Est Glomerular > 60 Filtrat Rate mL/min Glucose Level 187 Calcium Level 9.4 Total Bilirubin 0.4 Direct Bilirubin 0.00 Indirect 0.4 Bilirubin Aspartate Amino 24 Transf (AST/SGOT) Alanine 20 Aminotransferase (ALT/SGPT) Alkaline 69 Phosphatase Troponin I < 0.012 Total Protein 7.2 Albumin 4.4 Globulin 2.80 Albumin/Globulin 1.57 Ratio Amylase Level 312 H Lipase 704 H Ethyl Alcohol < 10.0 H Level Prothrombin Time 12.9 Prothrombin Time 1.0 Ratio INR International 0.96 Normalized Ratio Activated 22.4 L Partial Thrombopl ast Time POC Venous 3.2 *H 3.3 *H Lactate Test 03/12/19 22:34 03/13/19 01:49 03/13/19 04:47 03/13/19 05:13 Lactic Acid Level 2.4 *H 1.9 Urine Color YELLOW Urine Clarity SLIGHTLY CLOUDY A Urine pH 5.0 Urine Specific 1.046 H [place] Urine Ketones NEGATIVE Urine Nitrite NEGATIVE Urine Bilirubin NEGATIVE Urine NEGATIVE Urobilinogen Urine Leukocyte NEGATIVE Esterase Urine Microscopic 2 RBC Urine Microscopic 2 WBC Urine Mucus FEW A Urine Hemoglobin 2+ H Urine Glucose NEGATIVE Urine Total NEGATIVE Protein Urine Opiates POSITIVE Screen Urine NEGATIVE Barbiturates Urine POSITIVE Amphetamines Screen Urine POSITIVE Benzodiazepines Screen Urine Cocaine NEGATIVE Screen Urine POSITIVE Cannabinoids White Blood Count 21.0 H Red Blood Count 3.51 L Hemoglobin 10.4 L Hematocrit 31.4 L Mean Corpuscular 89.5 Volume Mean Corpuscular 29.6 Hemoglobin Mean Corpuscular 33.1 Hemoglobin Concen t Red Cell 14.9 H Distribution Width Platelet Count 416 H Mean Platelet 8.9 Volume Immature 0.700 H Granulocytes % Neutrophils % Segmented 50 Neutrophils % (Manual) Band Neutrophils 41 H % (Manual) Lymphocytes % Lymphocytes % 5 L (Manual) Monocytes % Monocytes % 4 (Manual) Eosinophils % Basophils % Nucleated Red 0.0 Blood Cells % Immature 0.140 H Granulocytes # Neutrophils # Neutrophils # 12.3 H (Manual) Band Neutrophils 8.6 H # Lymphocytes 1.0 (Manual) Lymphocytes # Monocytes # Monocytes # 0.8 (Manual) Eosinophils # Basophils # Nucleated Red Blood Cells # Platelet Estimate NORMAL Poikilocytosis 3+ Anisocytosis 2+ Microcytosis 1+ Macrocytosis 2+ Sodium Level 139 Potassium Level 4.6 Chloride Level 112 H Carbon Dioxide 20 L Level Anion Gap 7 # Blood Urea 25 H Nitrogen Creatinine 0.84 Est Glomerular > 60 Filtrat Rate mL/min Glucose Level 98 # Hemoglobin A1c 5.8 Calcium Level 7.7 L Magnesium Level 1.7 Total Bilirubin 0.3 Direct Bilirubin 0.00 Indirect 0.3 Bilirubin Aspartate Amino 24 Transf (AST/SGOT) Alanine 20 Aminotransferase (ALT/SGPT) Alkaline 38 L Phosphatase Total Protein 5.1 #L Albumin 2.8 #L Globulin 2.30 Albumin/Globulin 1.21 Ratio Triglycerides 39 Level Cholesterol Level 58 L LDL Cholesterol, 10 Calculated HDL Cholesterol 40 Cholesterol/HDL 1.4 Ratio Thyroid Pending Stimulating Hormone (TSH) Medications Medication Current Medications Vancomycin HCl (Vanco Iv Per Pharmacy) VANCOMYCIN PER PHARMACY PER PROTOCOL XX ; Start 03/12/19 at 18:00 Sodium Chloride 1,000 ml @ 125 mls/hr Q8H IV Last administered on 03/12/19at 23:16; Admin Dose 125 MLS/HR; Start 03/12/19 at 18:00 IV Flush (NS 3 ml) 3 ml PER PROTOCOL IV ; Start 03/12/19 at 18:00 Ondansetron HCl (Zofran Inj) 4 mg Q6H PRN IV NAUSEA/VOMITING; Start 03/12/19 at 18:00 Acetaminophen (Tylenol Tab) 650 mg Q6H PRN PO .PAIN 1-3 OR TEMP; Start 03/12/19 at 18:00 Acetaminophen/ Hydrocodone Bitart ([place] (5/325)) 1 tab Q6H PRN PO .PAIN 4-6; Start 03/12/19 at 18:00 Morphine Sulfate (morphine) 2 mg Q4H PRN IV .PAIN 7-10; Start 03/12/19 at 18:00 Acetaminophen 100 ml @ 400 mls/hr Q6H PRN IVPB pain or fever above 100.5F; Start 03/12/19 at 18:30; Stop 03/13/19 at 18:29 Vancomycin/Sodium Chloride 250 ml @ 125 mls/hr Q12H IVPB Last administered on 03/13/19at 04:23; Admin Dose 125 MLS/HR; Start 03/13/19 at 03:00 Piperacillin Sod/ Tazobactam Sod 100 ml @ 200 mls/hr Q6 IVPB Last administered on 03/13/19at 06:24; Admin Dose 200 MLS/HR; Start 03/13/19 at 00:00 Oxycodone/ Acetaminophen (Percocet (5/ 325)) 1 tab Q4H PRN PO .MILD PAIN (1-3); Start 03/12/19 at 22:00 Oxycodone/ Acetaminophen (Percocet (5/ 325)) 2 tab Q4H PRN PO .MODERATE PAIN ( 4-6); Start 03/12/19 at 22:00 Ondansetron HCl (Zofran Inj) 4 mg Q6H PRN IV NAUSEA/VOMITING; Start 03/12/19 at 22:00 CHETAN HURT NP Mar 13, 2019 09:56
--- NOTE | 2019-03-13 11:24 | QN ---
Documentation Comment Postoperative day #1 Greatly symptomatically improved Afebrile throughout Still with marked leukocytosis ELANA drainage is seropurulent Plan: Continue aggressive medical management. Cleared for transfer to [facility]. Continue NG tube SONAL TRUONG MD Mar 13, 2019 11:24
[2019-03-14] MEDS: PIPER-TAZO 3.375 GM IV (PMX) 100 ML IVPB SCH ×4 (00:26→17:32)
[2019-03-14] MEDS: SOD CHLORIDE 0.9% 1,000 ML IV SCH ×3 (00:32→11:45)
[2019-03-14 02:10] VITALS: BP 151/72; PULSE 61; RESP 16
[2019-03-14] MEDS: VANCOMYCIN 750 MG (PMX) 250 ML IVPB SCH ×3 (04:08→21:42)
[2019-03-14 08:22] VITALS: BP 116/64; PULSE 79; RESP 18
--- NOTE | 2019-03-14 13:03 | QN ---
Documentation Comment Postoperative day #2 Afebrile throughout. Patient feels greatly symptomatically improved. Leukocytosis persists although bandemia has resolved Abdomen is soft. Incision is clean. ELANA is seropurulent Plan: Continue medical management. Start clear liquids. DC Downs catheter SONAL TRUONG MD Mar 14, 2019 13:03
--- NOTE | 2019-03-14 14:36 | PN ---
Date/Time of Note Date/Time of Note DATE: 03/14/19 TIME: 14:35 Assessment/Plan VTE Prophylaxis Risk score (from Nsg)>0 risk: 4 SCD applied (from Nsg): Yes Pharmacological prophylaxis: NA/contraindicated Pharm contraindication: surgical contra Lines/C[facility]ters [facility] Urinary Cath still in place: Yes Reason Cath still needed: other (indicate) Assessment/Plan Hospital Course SUBJECTIVE: Abdominal pain well controlled. OBJECTIVE: Physical Exam General: Adequately build 58 year-old male lying in bed in no apparent distress. HEENT: Normocephalic, atraumatic. Eyes: Anicteric sclerae, conjunctivae clear. ENT: Nasal septum midline, oral mucosa moist. Neck supple, no JVD noticed. Respiratory: Bilaterally clear breath sounds. No use of accessory muscles of respiration. No adventitious breath sounds. Cardiovascular: S1, S2 heard. Regular rate and rhythm. Abdomen: Soft, nontender, and nondistended. Surgical dressing (midline). Genitourinary: Deferred. Extremities: No cyanosis, no clubbing, no edema. Peripheral pulses palpable. Neurologic: Cranial nerves II through XII grossly intact. The patient is awake, alert, and oriented. Skin: Normal skin turgor. No skin rashes. Labs & Vitals per chart ASSESSMENT & PLAN 58-year-old male with history of methamphetamine abuse and no other significant comorbidities who came to the emergency room with abdominal pain with CT suggesting pneumoperitoneum, who was emergently taken to the OR and underwent an oversew and plication of a perforated duodenal ulcer. 1. Perforated duodenal ulcer with pneumoperitoneum. -Status post oversew and plication of perforated duodenal ulcer on 03/04/2019. -Continue pain control. -Initiation of diet as per general surgery. -Continue antimicrobials including coverage for anaerobes. 2. Sepsis with leukocytosis, tachycardia, and lactic acidosis secondary to underlying peritonitis. -Continue empiric antimicrobials including coverage for anaerobes. 3. Polysubstance abuse. -farmworker rice consult. -Cessation advised. 4. Normocytic anemia. -Etiology unclear. -Monitor H&H closely. 5. Peptic ulcer disease. -Continue PPI. -Needs eventual gastroenterology evaluation including endoscopy. 6. Prediabetes. -Hemoglobin A1c 5.8. -Monitor glycemic trends. 7. Fluids, electrolytes, and nutrition. -Clear liquids. 8. DVT prophylaxis. -Bilateral SCDs. 9. Plan. -Continue empiric antimicrobials. -Continue pain control. -Encourage frequent use of incentive spirometry and early ambulation. -Advancement of diet as per general surgery. The patient was seen in collaboration with Dr. Bowman. Result Diagram: 03/14/19 0647 03/14/19 0647 Results 24hrs Laboratory Tests Test 03/14/19 02:10 03/14/19 06:47 Vancomycin Level Trough 6.4 L White Blood Count 25.0 H Red Blood Count 2.84 L Hemoglobin 8.3 #L Hematocrit 25.4 L Mean Corpuscular Volume 89.4 Mean Corpuscular Hemoglobin 29.2 Mean Corpuscular Hemoglobin Concent 32.7 Red Cell Distribution Width 15.9 H Platelet Count 396 Mean Platelet Volume 9.2 Immature Granulocytes % 1.600 H Neutrophils % 90.3 H Lymphocytes % 3.7 L Monocytes % 4.3 Eosinophils % 0.0 Basophils % 0.1 Nucleated Red Blood Cells % 0.0 Immature Granulocytes # 0.400 H Neutrophils # 22.5 H Lymphocytes # 0.9 Monocytes # 1.1 H Eosinophils # 0.0 Basophils # 0.0 Nucleated Red Blood Cells # 0.0 Sodium Level 140 Potassium Level 3.7 Chloride Level 110 Carbon Dioxide Level 23 Anion Gap 7 Blood Urea Nitrogen 18 Creatinine 0.69 Est Glomerular Filtrat Rate mL/min > 60 Glucose Level 80 Calcium Level 8.4 Phosphorus Level 2.9 Magnesium Level 2.2 Total Bilirubin 0.2 Direct Bilirubin 0.00 Indirect Bilirubin 0.2 Aspartate Amino Transf (AST/SGOT) 22 Alanine Aminotransferase (ALT/SGPT) 17 Alkaline Phosphatase 51 Total Protein 5.5 L Albumin 2.9 L Globulin 2.60 Albumin/Globulin Ratio 1.11 Exam/Review of Systems Exam Vitals Vital Signs Date Temp Pulse Resp B/P (MAP) Pulse Ox O2 O2 Flow FiO2 Time Delivery Rate 03/14/19 97.8 79 18 116/64 99 08:22 (81) 03/13/19 Room Air 12:00 Intake and Output 03/13/19 03/13/19 03/14/19 1515:00 23:00 07:00 IntakeIntake Total 625 ml 600 ml 1765 ml OutputOutput Total 250 ml 750 ml 2080 ml BalanceBalance 375 ml -150 ml -315 ml Results Results 24hrs Laboratory Tests Test 03/14/19 02:10 03/14/19 06:47 Vancomycin Level Trough 6.4 L White Blood Count 25.0 H Red Blood Count 2.84 L Hemoglobin 8.3 #L Hematocrit 25.4 L Mean Corpuscular Volume 89.4 Mean Corpuscular Hemoglobin 29.2 Mean Corpuscular Hemoglobin Concent 32.7 Red Cell Distribution Width 15.9 H Platelet Count 396 Mean Platelet Volume 9.2 Immature Granulocytes % 1.600 H Neutrophils % 90.3 H Lymphocytes % 3.7 L Monocytes % 4.3 Eosinophils % 0.0 Basophils % 0.1 Nucleated Red Blood Cells % 0.0 Immature Granulocytes # 0.400 H Neutrophils # 22.5 H Lymphocytes # 0.9 Monocytes # 1.1 H Eosinophils # 0.0 Basophils # 0.0 Nucleated Red Blood Cells # 0.0 Sodium Level 140 Potassium Level 3.7 Chloride Level 110 Carbon Dioxide Level 23 Anion Gap 7 Blood Urea Nitrogen 18 Creatinine 0.69 Est Glomerular Filtrat Rate mL/min > 60 Glucose Level 80 Calcium Level 8.4 Phosphorus Level 2.9 Magnesium Level 2.2 Total Bilirubin 0.2 Direct Bilirubin 0.00 Indirect Bilirubin 0.2 Aspartate Amino Transf (AST/SGOT) 22 Alanine Aminotransferase (ALT/SGPT) 17 Alkaline Phosphatase 51 Total Protein 5.5 L Albumin 2.9 L Globulin 2.60 Albumin/Globulin Ratio 1.11 Medications Medication Current Medications Vancomycin HCl (Vanco Iv Per Pharmacy) VANCOMYCIN PER PHARMACY PER PROTOCOL XX ; Start 03/12/19 at 18:00 Sodium Chloride 1,000 ml @ 125 mls/hr Q8H IV Last administered on 03/14/19at 11:45; Admin Dose 125 MLS/HR; Start 03/12/19 at 18:00 IV Flush (NS 3 ml) 3 ml PER PROTOCOL IV ; Start 03/12/19 at 18:00 Acetaminophen (Tylenol Tab) 650 mg Q6H PRN PO .PAIN 1-3 OR TEMP; Start 03/12/19 at 18:00 Acetaminophen/ Hydrocodone Bitart ([place] (5/325)) 1 tab Q6H PRN PO .PAIN 4-6; Start 03/12/19 at 18:00 Morphine Sulfate (morphine) 2 mg Q4H PRN IV .PAIN 7-10; Start 03/12/19 at 18:00 Piperacillin Sod/ Tazobactam Sod 100 ml @ 200 mls/hr Q6 IVPB Last administered on 03/14/19at 11:45; Admin Dose 200 MLS/HR; Start 03/13/19 at 00:00 Oxycodone/ Acetaminophen (Percocet (5/ 325)) 1 tab Q4H PRN PO .MILD PAIN (1-3); Start 03/12/19 at 22:00 Oxycodone/ Acetaminophen (Percocet (5/ 325)) 2 tab Q4H PRN PO .MODERATE PAIN (4-6); Start 03/12/19 at 22:00 Ondansetron HCl (Zofran Inj) 4 mg Q6H PRN IV NAUSEA/VOMITING; Start 03/12/19 at 22:00 Vancomycin/Sodium Chloride 250 ml @ 125 mls/hr Q8H IVPB Last administered on 03/14/19at 12:40; Admin Dose 125 MLS/HR; Start 03/14/19 at 04:00 Miscellaneous Information (*Rx Drug Level Order Reminder*) JENAE TR LEVEL 5/ AT 0300 0300 ONCE XX ; Start 03/15/19 at 03:00; Stop 03/15/19 at 03:01 CHETAN HURT NP Mar 14, 2019 14:36
[2019-03-14 15:16] VITALS: BP 153/74; PULSE 72; RESP 18
[2019-03-14 21:41] VITALS: BP 120/70; PULSE 80; RESP 20
[2019-03-15] MEDS: SOD CHLORIDE 0.9% 1,000 ML IV SCH ×4 (01:42→23:28)
[2019-03-15] MEDS: PIPER-TAZO 3.375 GM IV (PMX) 100 ML IVPB SCH ×5 (01:42→23:28)
[2019-03-15] MEDS: VANCOMYCIN 750 MG (PMX) 250 ML IVPB SCH ×2 (05:56→11:38)
[2019-03-15 08:17] VITALS: BP 120/66; PULSE 64; RESP 18
--- NOTE | 2019-03-15 09:06 | QN ---
Documentation Comment Postoperative day #3 Continued symptomatic improvement. No pain Leukocytosis improved to 19,000 ELANA drainage seropurulent Plan: Continue medical management SONAL TRUONG MD March 15, 2019 09:06
[2019-03-15] MEDS ORDERED: POTASSIUM CHLORIDE 20 MEQ POWDER FOR ORAL SOLN PO ONE (11:00)
[2019-03-15] MEDS ORDERED: POTASSIUM PHOSPHATE 15 MM in SOD CHLORIDE 0.9% 250 ML IVPB ONE (12:30)
--- NOTE | 2019-03-15 12:35 | PN ---
Date/Time of Note Date/Time of Note DATE: 03/15/19 TIME: 12:34 Assessment/Plan VTE Prophylaxis Risk score (from Nsg)>0 risk: 4 SCD applied (from Ns): Yes Pharmacological prophylaxis: NA/contraindicated Pharm contraindication: surgical contra Lines/Catheters IV Catheter Type (from Nrsg): Peripheral IV Urinary Cath still in place: No Assessment/Plan Hospital Course SUBJECTIVE: Abdominal pain well controlled. OBJECTIVE: Physical Exam General: Adequately build 58 year-old male lying in bed in no apparent distress. HEENT: Normocephalic, atraumatic. Eyes: Anicteric sclerae, conjunctivae clear. ENT: Nasal septum midline, oral mucosa moist. Neck supple, no JVD noticed. Respiratory: Bilaterally clear breath sounds. No use of accessory muscles of respiration. No adventitious breath sounds. Cardiovascular: S1, S2 heard. Regular rate and rhythm. Abdomen: Soft, nontender, and nondistended. Surgical dressing (midline). Genitourinary: Deferred. Extremities: No cyanosis, no clubbing, no edema. Peripheral pulses palpable. Neurologic: Cranial nerves II through XII grossly intact. The patient is awake, alert, and oriented. Skin: Normal skin turgor. No skin rashes. Labs & Vitals per chart ASSESSMENT & PLAN 58-year-old male with history of methamphetamine abuse and no other significant comorbidities who came to the emergency room with abdominal pain with CT suggesting pneumoperitoneum, who was emergently taken to the OR and underwent an oversew and plication of a perforated duodenal ulcer. 1. Perforated duodenal ulcer with pneumoperitoneum. -Status post oversew and plication of perforated duodenal ulcer on 03/04/2019. -Continue pain control. -Initiation of diet as per general surgery. -Continue antimicrobials including coverage for anaerobes. 2. Sepsis with leukocytosis, tachycardia, and lactic acidosis secondary to underlying peritonitis. -Continue empiric antimicrobials including coverage for anaerobes. 3. Polysubstance abuse. -sand car worker consult. -Cessation advised. 4. Normocytic anemia. -Etiology unclear. -Monitor H&H closely. 5. Peptic ulcer disease. -Continue PPI. -Needs eventual gastroenterology evaluation including endoscopy. 6. Prediabetes. -Hemoglobin A1c 5.8. -Monitor glycemic trends. 7. Fluids, electrolytes, and nutrition. -Clear liquids. 8. DVT prophylaxis. -Bilateral SCDs. 9. Plan. -Continue empiric antimicrobials. -Continue pain control. -Encourage frequent use of incentive spirometry and early ambulation. -Replete electrolytes. -Advancement of diet as per general surgery. The patient was seen in collaboration with Dr. Bowman. Result Diagram: 03/15/19 1115 03/15/19 0541 Results 24hrs Laboratory Tests Test 03/15/19 03:23 03/15/19 05:41 03/15/19 11:15 Vancomycin Level Trough 11.1 White Blood Count 19.8 #H Red Blood Count 2.50 L Hemoglobin 7.3 L 7.4 L Hematocrit 22.1 L 22.1 L Mean Corpuscular Volume 88.4 Mean Corpuscular Hemoglobin 29.2 Mean Corpuscular Hemoglobin Concent 33.0 Red Cell Distribution Width 15.3 H Platelet Count 349 Mean Platelet Volume 8.6 Immature Granulocytes % 1.300 H Neutrophils % 87.0 H Lymphocytes % 6.6 L Monocytes % 4.9 Eosinophils % 0.1 Basophils % 0.1 Nucleated Red Blood Cells % 0.0 Immature Granulocytes # 0.250 H Neutrophils # 17.3 H Lymphocytes # 1.3 Monocytes # 1.0 H Eosinophils # 0.0 Basophils # 0.0 Nucleated Red Blood Cells # 0.0 Sodium Level 135 Potassium Level 3.1 L Chloride Level 103 Carbon Dioxide Level 28 Anion Gap 4 L Blood Urea Nitrogen 14 Creatinine 0.67 Est Glomerular Filtrat Rate mL/min > 60 Glucose Level 98 Calcium Level 8.1 L Phosphorus Level 1.8 #L Magnesium Level 2.1 Total Bilirubin 0.3 Direct Bilirubin 0.00 Indirect Bilirubin 0.3 Aspartate Amino Transf (AST/SGOT) 22 Alanine Aminotransferase (ALT/SGPT) 21 Alkaline Phosphatase 48 Total Protein 5.2 L Albumin 2.6 L Globulin 2.60 Albumin/Globulin Ratio 1.00 Exam/Review of Systems Exam Vitals Vital Signs Date Temp Pulse Resp B/P (MAP) Pulse Ox O2 O2 Flow FiO2 Time Delivery Rate 03/15/19 98.1 64 18 120/66 100 Room Air 08:17 (84) Intake and Output 03/14/19 03/14/19 03/15/19 1515:00 23:00 07:00 IntakeIntake Total 785 ml 1590 ml 1495 ml OutputOutput Total 1050 ml 500 ml 1100 ml BalanceBalance -265 ml 1090 ml 395 ml Results Results 24hrs Laboratory Tests Test 03/15/19 03:23 03/15/19 05:41 03/15/19 11:15 Vancomycin Level Trough 11.1 White Blood Count 19.8 #H Red Blood Count 2.50 L Hemoglobin 7.3 L 7.4 L Hematocrit 22.1 L 22.1 L Mean Corpuscular Volume 88.4 Mean Corpuscular Hemoglobin 29.2 Mean Corpuscular Hemoglobin Concent 33.0 Red Cell Distribution Width 15.3 H Platelet Count 349 Mean Platelet Volume 8.6 Immature Granulocytes % 1.300 H Neutrophils % 87.0 H Lymphocytes % 6.6 L Monocytes % 4.9 Eosinophils % 0.1 Basophils % 0.1 Nucleated Red Blood Cells % 0.0 Immature Granulocytes # 0.250 H Neutrophils # 17.3 H Lymphocytes # 1.3 Monocytes # 1.0 H Eosinophils # 0.0 Basophils # 0.0 Nucleated Red Blood Cells # 0.0 Sodium Level 135 Potassium Level 3.1 L Chloride Level 103 Carbon Dioxide Level 28 Anion Gap 4 L Blood Urea Nitrogen 14 Creatinine 0.67 Est Glomerular Filtrat Rate mL/min > 60 Glucose Level 98 Calcium Level 8.1 L Phosphorus Level 1.8 #L Magnesium Level 2.1 Total Bilirubin 0.3 Direct Bilirubin 0.00 Indirect Bilirubin 0.3 Aspartate Amino Transf (AST/SGOT) 22 Alanine Aminotransferase (ALT/SGPT) 21 Alkaline Phosphatase 48 Total Protein 5.2 L Albumin 2.6 L Globulin 2.60 Albumin/Globulin Ratio 1.00 Medications Medication Current Medications Vancomycin HCl (Vanco Iv Per Pharmacy) VANCOMYCIN PER PHARMACY PER PROTOCOL XX ; Start 03/12/19 at 18:00 Sodium Chloride 1,000 ml @ 125 mls/hr Q8H IV Last administered on 03/15/19at 01:42; Admin Dose 125 MLS/HR; Start 03/12/19 at 18:00 IV Flush (NS 3 ml) 3 ml PER PROTOCOL IV ; Start 03/12/19 at 18:00 Acetaminophen (Tylenol Tab) 650 mg Q6H PRN PO .PAIN 1-3 OR TEMP; Start 03/12/19 at 18:00 Acetaminophen/ Hydrocodone Bitart ([place] (5/325)) 1 tab Q6H PRN PO .PAIN 4-6; Start 03/12/19 at 18:00 Morphine Sulfate (morphine) 2 mg Q4H PRN IV .PAIN 7-10; Start 03/12/19 at 18:00 Piperacillin Sod/ Tazobactam Sod 100 ml @ 200 mls/hr Q6 IVPB Last administered on 03/15/19at 08:54; Admin Dose 200 MLS/HR; Start 03/13/19 at 00:00 Oxycodone/ Acetaminophen (Percocet (5/ 325)) 1 tab Q4H PRN PO .MILD PAIN (1-3); Start 03/12/19 at 22:00 Oxycodone/ Acetaminophen (Percocet (5/ 325)) 2 tab Q4H PRN PO .MODERATE PAIN (4-6); Start 03/12/19 at 22:00 Ondansetron HCl (Zofran Inj) 4 mg Q6H PRN IV NAUSEA/VOMITING; Start 03/12/19 at 22:00 Vancomycin/Sodium Chloride 250 ml @ 125 mls/hr Q8H IVPB Last administered on 03/15/19at 11:38; Admin Dose 125 MLS/HR; Start 03/14/19 at 04:00 Potassium Phosphate 15 mm/ Sodium Chloride 255 ml @ 63.75 mls/ hr ONCE ONCE IVPB ; Start 03/15/19 at 12:30; Stop 03/15/19 at 16:29 CHETAN HURT NP March 15, 2019 12:35
[2019-03-15 15:16] VITALS: BP 122/70; PULSE 68; RESP 18
[2019-03-15 19:35] VITALS: BP 167/97; PULSE 67; RESP 18
[2019-03-16 01:58] VITALS: BP 116/64; PULSE 74; RESP 18
[2019-03-16] MEDS: PIPER-TAZO 3.375 GM IV (PMX) 100 ML IVPB SCH ×3 (05:44→18:19)
[2019-03-16 08:00] VITALS: BP 114/80; PULSE 88; RESP 18
[2019-03-16] MEDS: SOD CHLORIDE 0.9% 1,000 ML IV SCH ×2 (09:33→18:19)
--- NOTE | 2019-03-16 09:53 | QN ---
Documentation Comment Postoperative day #4 Continued symptomatic improvement Abdominal examination is benign WBC down to 12,600 ELANA drainage serous Plan: Continue medical management SONLA TRUONG MD March 16, 2019 09:53
--- NOTE | 2019-03-16 12:17 | PN ---
Date/Time of Note Date/Time of Note DATE: 03/16/19 TIME: 12:16 Assessment/Plan VTE Prophylaxis Risk score (from Nsg)>0 risk: 4 SCD applied (from Nsg): Yes Pharmacological prophylaxis: NA/contraindicated Pharm contraindication: anticoag not tolerated Lines/Catheters IV Catheter Type (from Nrsg): Peripheral IV Urinary Cath still in place: No Assessment/Plan Hospital Course SUBJECTIVE: Abdominal pain well controlled. OBJECTIVE: Physical Exam General: Adequately build 58 year-old male lying in bed in no apparent distress. HEENT: Normocephalic, atraumatic. Eyes: Anicteric sclerae, conjunctivae clear. ENT: Nasal septum midline, oral mucosa moist. Neck supple, no JVD noticed. Respiratory: Bilaterally clear breath sounds. No use of accessory muscles of respiration. No adventitious breath sounds. Cardiovascular: S1, S2 heard. Regular rate and rhythm. Abdomen: Soft, nontender, and nondistended. Surgical dressing (midline). ELANA drain in place draining serous fluid. Genitourinary: Deferred. Extremities: No cyanosis, no clubbing, no edema. Peripheral pulses palpable. Neurologic: Cranial nerves II through XII grossly intact. The patient is awake, alert, and oriented. Skin: Normal skin turgor. No skin rashes. Labs & Vitals per chart ASSESSMENT & PLAN 58-year-old male with history of methamphetamine abuse and no other significant comorbidities who came to the emergency room with abdominal pain with CT suggesting pneumoperitoneum, who was emergently taken to the OR and underwent an oversew and plication of a perforated duodenal ulcer. 1. Perforated duodenal ulcer with pneumoperitoneum. -Status post oversew and plication of perforated duodenal ulcer on 03/04/2019. -Continue pain control. -Initiation of diet as per general surgery. -Continue antimicrobials including coverage for anaerobes. 2. Sepsis with leukocytosis, tachycardia, and lactic acidosis secondary to underlying peritonitis. -Continue empiric antimicrobials including coverage for anaerobes. 3. Polysubstance abuse. -computer recycling worker consult. -Cessation advised. 4. Normocytic anemia. -Etiology unclear. -Monitor H&H closely. 5. Peptic ulcer disease. -Continue PPI. -Needs eventual gastroenterology evaluation including endoscopy. 6. Prediabetes. -Hemoglobin A1c 5.8. -Monitor glycemic trends. 7. Fluids, electrolytes, and nutrition. -Clear liquids. 8. DVT prophylaxis. -Bilateral SCDs. 9. Plan. -Continue empiric antimicrobials. -Continue pain control. -Encourage frequent use of incentive spirometry and early ambulation. -Replete electrolytes. -Advancement of diet as per general surgery. The patient was seen in collaboration with Dr. Bowman. Result Diagram: 03/16/1914 03/16/19 0514 Results 24hrs Laboratory Tests Test 03/16/19 05:14 White Blood Count 12.8 #H Red Blood Count 2.84 L Hemoglobin 8.3 L Hematocrit 25.0 L Mean Corpuscular Volume 88.0 Mean Corpuscular Hemoglobin 29.2 Mean Corpuscular Hemoglobin Concent 33.2 Red Cell Distribution Width 14.8 H Platelet Count 491 #H Mean Platelet Volume 8.9 Immature Granulocytes % 0.700 H Neutrophils % 79.5 H Lymphocytes % 13.0 L Monocytes % 6.3 Eosinophils % 0.3 Basophils % 0.2 Nucleated Red Blood Cells % 0.4 H Immature Granulocytes # 0.090 H Neutrophils # 10.2 H Lymphocytes # 1.7 Monocytes # 0.8 Eosinophils # 0.0 Basophils # 0.0 Nucleated Red Blood Cells # 0.1 H Sodium Level 137 Potassium Level 3.2 L Chloride Level 101 Carbon Dioxide Level 29 Anion Gap 7 Blood Urea Nitrogen 9 Creatinine 0.69 Est Glomerular Filtrat Rate mL/min > 60 Glucose Level 107 Calcium Level 8.0 L Phosphorus Level 2.4 L Magnesium Level 1.9 Total Bilirubin 0.3 Direct Bilirubin 0.00 Indirect Bilirubin 0.3 Aspartate Amino Transf (AST/SGOT) 28 Alanine Aminotransferase (ALT/SGPT) 24 Alkaline Phosphatase 57 Total Protein 5.6 L Albumin 2.9 L Globulin 2.70 Albumin/Globulin Ratio 1.07 Exam/Review of Systems Exam Vitals Vital Signs Date Temp Pulse Resp B/P (MAP) Pulse Ox O2 O2 Flow FiO2 Time Delivery Rate 03/16/19 97.8 88 18 114/80 96 08:00 (91) 03/15/19 Room Air 15:16 Intake and Output 03/15/19 03/15/19 03/16/19 1515:00 23:00 07:00 IntakeIntake Total 1740 ml 1145 ml 1500 ml OutputOutput Total 2600 ml 1920 ml 835 ml BalanceBalance -860 ml -775 ml 665 ml Results Results 24hrs Laboratory Tests Test 03/16/19 05:14 White Blood Count 12.8 #H Red Blood Count 2.84 L Hemoglobin 8.3 L Hematocrit 25.0 L Mean Corpuscular Volume 88.0 Mean Corpuscular Hemoglobin 29.2 Mean Corpuscular Hemoglobin Concent 33.2 Red Cell Distribution Width 14.8 H Platelet Count 491 #H Mean Platelet Volume 8.9 Immature Granulocytes % 0.700 H Neutrophils % 79.5 H Lymphocytes % 13.0 L Monocytes % 6.3 Eosinophils % 0.3 Basophils % 0.2 Nucleated Red Blood Cells % 0.4 H Immature Granulocytes # 0.090 H Neutrophils # 10.2 H Lymphocytes # 1.7 Monocytes # 0.8 Eosinophils # 0.0 Basophils # 0.0 Nucleated Red Blood Cells # 0.1 H Sodium Level 137 Potassium Level 3.2 L Chloride Level 101 Carbon Dioxide Level 29 Anion Gap 7 Blood Urea Nitrogen 9 Creatinine 0.69 Est Glomerular Filtrat Rate mL/min > 60 Glucose Level 107 Calcium Level 8.0 L Phosphorus Level 2.4 L Magnesium Level 1.9 Total Bilirubin 0.3 Direct Bilirubin 0.00 Indirect Bilirubin 0.3 Aspartate Amino Transf (AST/SGOT) 28 Alanine Aminotransferase (ALT/SGPT) 24 Alkaline Phosphatase 57 Total Protein 5.6 L Albumin 2.9 L Globulin 2.70 Albumin/Globulin Ratio 1.07 Medications Medication Current Medications Sodium Chloride 1,000 ml @ 125 mls/hr Q8H IV Last administered on 03/16/19at 09:33; Admin Dose 125 MLS/HR; Start 03/12/19 at 18:00 IV Flush (NS 3 ml) 3 ml PER PROTOCOL IV ; Start 03/12/19 at 18:00 Acetaminophen (Tylenol Tab) 650 mg Q6H PRN PO .PAIN 1-3 OR TEMP; Start 03/12/19 at 18:00 Acetaminophen/ Hydrocodone Bitart ([place] (5/325)) 1 tab Q6H PRN PO .PAIN 4-6; Start 03/12/19 at 18:00 Morphine Sulfate (morphine) 2 mg Q4H PRN IV .PAIN 7-10; Start 03/12/19 at 18:00 Piperacillin Sod/ Tazobactam Sod 100 ml @ 200 mls/hr Q6 IVPB Last administered on 03/16/19at 05:44; Admin Dose 200 MLS/HR; Start 03/13/19 at 00:00 Oxycodone/ Acetaminophen (Percocet (5/ 325)) 1 tab Q4H PRN PO .MILD PAIN (1-3); Start 03/12/19 at 22:00 Oxycodone/ Acetaminophen (Percocet (5/ 325)) 2 tab Q4H PRN PO .MODERATE PAIN (4-6); Start 03/12/19 at 22:00 Ondansetron HCl (Zofran Inj) 4 mg Q6H PRN IV NAUSEA/VOMITING; Start 03/12/19 at 22:00 CHETAN HURT NP March 16, 2019 12:17
[2019-03-16 14:00] VITALS: BP 130/80; PULSE 76; RESP 18
[2019-03-16] MEDS ORDERED: POTASSIUM PHOSPHATE 30 MM in SOD CHLORIDE 0.9% 250 ML IVPB ONE (14:00)
[2019-03-16 20:00] VITALS: BP 123/69; PULSE 77; RESP 18
[2019-03-17] MEDS: PIPER-TAZO 3.375 GM IV (PMX) 100 ML IVPB SCH ×5 (00:03→23:51)
[2019-03-17 02:00] VITALS: BP 140/90; PULSE 70; RESP 18
[2019-03-17] MEDS: SOD CHLORIDE 0.9% 1,000 ML IV SCH ×2 (05:44→09:21)
--- NOTE | 2019-03-17 07:56 | QN ---
Documentation Comment Postoperative day #5 Afebrile throughout Leukocytosis resolved ELANA drainage diminishing Plan: Soft diet SONAL TRUONG MD March 17, 2019 07:56
[2019-03-17 08:00] VITALS: BP 108/52; PULSE 76; RESP 18
--- NOTE | 2019-03-17 11:51 | PN ---
Date/Time of Note Date/Time of Note DATE: 03/17/19 TIME: 11:50 Assessment/Plan VTE Prophylaxis Risk score (from Nsg)>0 risk: 4 SCD applied (from Nsg): Yes Pharmacological prophylaxis: NA/contraindicated Pharm contraindication: anticoag not tolerated Lines/Catheters IV Catheter Type (from Nrsg): Peripheral IV Urinary Cath still in place: No Assessment/Plan Hospital Course SUBJECTIVE: Abdominal pain well controlled. OBJECTIVE: Physical Exam General: Adequately build 58 year-old male lying in bed in no apparent distress. HEENT: Normocephalic, atraumatic. Eyes: Anicteric sclerae, conjunctivae clear. ENT: Nasal septum midline, oral mucosa moist. Neck supple, no JVD noticed. Respiratory: Bilaterally clear breath sounds. No use of accessory muscles of respiration. No adventitious breath sounds. Cardiovascular: S1, S2 heard. Regular rate and rhythm. Abdomen: Soft, nontender, and nondistended. Surgical dressing (midline). ELANA drain in place draining serous fluid. Genitourinary: Deferred. Extremities: No cyanosis, no clubbing, no edema. Peripheral pulses palpable. Neurologic: Cranial nerves II through XII grossly intact. The patient is awake, alert, and oriented. Skin: Normal skin turgor. No skin rashes. Labs & Vitals per chart ASSESSMENT & PLAN 58-year-old male with history of methamphetamine abuse and no other significant comorbidities who came to the emergency room with abdominal pain with CT suggesting pneumoperitoneum, who was emergently taken to the OR and underwent an oversew and plication of a perforated duodenal ulcer. 1. Perforated duodenal ulcer with pneumoperitoneum. -Status post oversew and plication of perforated duodenal ulcer on 03/04/2019. -Continue pain control. -Initiation of diet as per general surgery. -Continue antimicrobials including coverage for anaerobes. 2. Sepsis with leukocytosis, tachycardia, and lactic acidosis secondary to underlying peritonitis. -Continue empiric antimicrobials including coverage for anaerobes. 3. Polysubstance abuse. -pit worker power shovel consult. -Cessation advised. 4. Normocytic anemia. -Etiology unclear. -Monitor H&H closely. 5. Peptic ulcer disease. -Continue PPI. -Needs eventual gastroenterology evaluation including endoscopy. 6. Prediabetes. -Hemoglobin A1c 5.8. -Monitor glycemic trends. 7. Fluids, electrolytes, and nutrition. -SOft diet. 8. DVT prophylaxis. -Bilateral SCDs. 9. Plan. -Continue empiric antimicrobials. -Continue pain control. -Encourage frequent use of incentive spirometry and early ambulation. -DC IVFs. -Advancement of diet as per general surgery. The patient was seen in collaboration with Dr. Bowman. Result Diagram: 03/17/1911 03/17/1911 Results 24hrs Laboratory Tests Test 03/17/19 05:11 White Blood Count 9.6 # Red Blood Count 3.01 L Hemoglobin 8.6 L Hematocrit 26.3 L Mean Corpuscular Volume 87.4 Mean Corpuscular Hemoglobin 28.6 L Mean Corpuscular Hemoglobin Concent 32.7 Red Cell Distribution Width 15.2 H Platelet Count 541 H Mean Platelet Volume 8.5 Immature Granulocytes % 0.900 H Neutrophils % 66.1 Lymphocytes % 20.4 Monocytes % 11.0 Eosinophils % 1.3 Basophils % 0.3 Nucleated Red Blood Cells % 0.4 H Immature Granulocytes # 0.090 H Neutrophils # 6.3 Lymphocytes # 2.0 Monocytes # 1.1 H Eosinophils # 0.1 Basophils # 0.0 Nucleated Red Blood Cells # 0.0 Sodium Level 138 Potassium Level 3.6 Chloride Level 101 Carbon Dioxide Level 31 Anion Gap 6 Blood Urea Nitrogen 6 L Creatinine 0.66 Est Glomerular Filtrat Rate mL/min > 60 Glucose Level 117 Calcium Level 8.3 L Phosphorus Level 2.5 Magnesium Level 2.0 Exam/Review of Systems Exam Vitals Vital Signs Date Temp Pulse Resp B/P (MAP) Pulse Ox O2 O2 Flow FiO2 Time Delivery Rate 03/17/19 98.6 76 18 108/52 96 08:00 (70) 03/16/19 Room Air 08:00 Intake and Output 03/16/19 03/16/19 03/17/19 1515:00 23:00 07:00 IntakeIntake Total 650 ml 760 ml 1200 ml OutputOutput Total 1000 ml BalanceBalance 650 ml 760 ml 200 ml Results Results 24hrs Laboratory Tests Test 03/17/19 05:11 White Blood Count 9.6 # Red Blood Count 3.01 L Hemoglobin 8.6 L Hematocrit 26.3 L Mean Corpuscular Volume 87.4 Mean Corpuscular Hemoglobin 28.6 L Mean Corpuscular Hemoglobin Concent 32.7 Red Cell Distribution Width 15.2 H Platelet Count 541 H Mean Platelet Volume 8.5 Immature Granulocytes % 0.900 H Neutrophils % 66.1 Lymphocytes % 20.4 Monocytes % 11.0 Eosinophils % 1.3 Basophils % 0.3 Nucleated Red Blood Cells % 0.4 H Immature Granulocytes # 0.090 H Neutrophils # 6.3 Lymphocytes # 2.0 Monocytes # 1.1 H Eosinophils # 0.1 Basophils # 0.0 Nucleated Red Blood Cells # 0.0 Sodium Level 138 Potassium Level 3.6 Chloride Level 101 Carbon Dioxide Level 31 Anion Gap 6 Blood Urea Nitrogen 6 L Creatinine 0.66 Est Glomerular Filtrat Rate mL/min > 60 Glucose Level 117 Calcium Level 8.3 L Phosphorus Level 2.5 Magnesium Level 2.0 Medications Medication Current Medications Sodium Chloride 1,000 ml @ 125 mls/hr Q8H IV Last administered on 03/17/19at 05:44; Admin Dose 125 MLS/HR; Start 03/12/19 at 18:00 IV Flush (NS 3 ml) 3 ml PER PROTOCOL IV ; Start 03/12/19 at 18:00 Acetaminophen (Tylenol Tab) 650 mg Q6H PRN PO .PAIN 1-3 OR TEMP; Start 03/12/19 at 18:00 Acetaminophen/ Hydrocodone Bitart ([place] (5/325)) 1 tab Q6H PRN PO .PAIN 4-6; Start 03/12/19 at 18:00 Morphine Sulfate (morphine) 2 mg Q4H PRN IV .PAIN 7-10; Start 03/12/19 at 18:00 Piperacillin Sod/ Tazobactam Sod 100 ml @ 200 mls/hr Q6 IVPB Last administered on 03/17/19at 05:34; Admin Dose 200 MLS/HR; Start 03/13/19 at 00:00 Oxycodone/ Acetaminophen (Percocet (5/ 325)) 1 tab Q4H PRN PO .MILD PAIN (1-3); Start 03/12/19 at 22:00 Oxycodone/ Acetaminophen (Percocet (5/ 325)) 2 tab Q4H PRN PO .MODERATE PAIN (4-6); Start 03/12/19 at 22:00 Ondansetron HCl (Zofran Inj) 4 mg Q6H PRN IV NAUSEA/VOMITING; Start 03/12/19 at 22:00 CHETAN HURT NP March 17, 2019 11:51
[2019-03-17 14:00] VITALS: BP 148/74; PULSE 76; RESP 18
[2019-03-17 20:00] VITALS: BP 154/87; PULSE 86; RESP 18
[2019-03-18 02:00] VITALS: BP 139/85; PULSE 81; RESP 18
[2019-03-18] MEDS: PIPER-TAZO 3.375 GM IV (PMX) 100 ML IVPB SCH ×4 (06:56→23:44)
[2019-03-18 08:00] VITALS: BP 121/64; PULSE 76; RESP 18
--- NOTE | 2019-03-18 11:02 | QN ---
Documentation Comment Postoperative day #6 Continued symptomatic improvement Tolerating soft diet nicely ELANA drainage markedly diminished Plan: Can be discharged when medically cleared SONAL TRUONG MD March 18, 2019 11:02
--- NOTE | 2019-03-18 11:02 | PN ---
Date/Time of Note Date/Time of Note DATE: 03/18/19 TIME: 11:01 Objective Vitals Vital Signs Date Temp Pulse Resp B/P (MAP) Pulse Ox O2 O2 Flow FiO2 Time Delivery Rate 03/18/19 98.8 76 18 121/64 96 08:00 (83) 03/16/19 Room Air 08:00 Intake and Output 03/17/19 03/17/19 03/18/19 1515:00 23:00 07:00 IntakeIntake Total 1800 ml 480 ml 100 ml OutputOutput Total 110 ml BalanceBalance 1690 ml 480 ml 100 ml Results Result Diagram: 03/18/19 0449 03/18/19 0450 Medications Medications Current Medications IV Flush (NS 3 ml) 3 ml PER PROTOCOL IV ; Start 03/12/19 at 18:00 Acetaminophen (Tylenol Tab) 650 mg Q6H PRN PO .PAIN 1-3 OR TEMP; Start 03/12/19 at 18:00 Acetaminophen/ Hydrocodone Bitart ([place] (5/325)) 1 tab Q6H PRN PO .PAIN 4-6; Start 03/12/19 at 18:00 Morphine Sulfate (morphine) 2 mg Q4H PRN IV .PAIN 7-10; Start 03/12/19 at 18:00 Piperacillin Sod/ Tazobactam Sod 100 ml @ 200 mls/hr Q6 IVPB Last administered on 03/18/19at 06:56; Admin Dose 200 MLS/HR; Start 03/13/19 at 00:00 Oxycodone/ Acetaminophen (Percocet (5/ 325)) 1 tab Q4H PRN PO .MILD PAIN (1-3); Start 03/12/19 at 22:00 Oxycodone/ Acetaminophen (Percocet (5/ 325)) 2 tab Q4H PRN PO .MODERATE PAIN (4-6); Start 03/12/19 at 22:00 Ondansetron HCl (Zofran Inj) 4 mg Q6H PRN IV NAUSEA/VOMITING; Start 03/12/19 at 22:00 VTE Prophylaxis Risk score (from Ns)>0 risk: 3 SCD applied (from Ns): Yes Lines/Catheters IV Catheter Type: Downs in Place: No Assessment/Plan Hospital Course Subjective Patient feels well, feels like he is getting better with physical therapy every day Objective Physical exam General: Patient is laying in bed and answers questions appropriately Mentation: Patient is alert and oriented 4, Head: Normocephalic atraumatic Eyes: EOMI, pupils reactive to light Neck: Supple, nontender, midline Respiratory: Clear to auscultation bilaterally Cardiovascular: regular rate, no obvious murmurs Gastrointestinal: Mildly-tender to palpation, bowel sounds heard. Drain still in place Neurological: Moves all extremities spontaneously Skin: Surgical site, bandage, CDI ASSESSMENT & PLAN 58-year-old male with history of methamphetamine abuse and no other significant comorbidities who came to the emergency room with abdominal pain with CT suggesting pneumoperitoneum, who was emergently taken to the OR and underwent patch of a perforated duodenal ulcer. 1. Perforated duodenal ulcer with pneumoperitoneum. -Status post oversew and plication of perforated duodenal ulcer on 03/04/2019. -Continue pain control. -Initiation of diet as per general surgery. -Continue antimicrobials including coverage for anaerobes. ID consulted for end date. 2. Sepsis with leukocytosis, tachycardia, and lactic acidosis secondary to underlying peritonitis. -Continue empiric antimicrobials including coverage for anaerobes. 3. Polysubstance abuse. -compensator worker consult. -Cessation advised. 4. Normocytic anemia. -Etiology unclear. -Monitor H&H closely. 5. Peptic ulcer disease. -Continue PPI. -Needs eventual gastroenterology evaluation including endoscopy. 6. Prediabetes. -Hemoglobin A1c 5.8. -Monitor glycemic trends. 7. Fluids, electrolytes, and nutrition. -SOft diet. 8. DVT prophylaxis. -Bilateral SCDs. 9. Plan. -Continue empiric antimicrobials. -Continue pain control. -Encourage frequent use of incentive spirometry and early ambulation. -Patient is homeless, socially responsible investment adviser on board to help with placement, when patient gets stronger likely dischargeable, currently still undergoing medical care with antibiotics and general surgery management. JANUARY CALDERON March 18, 2019 11:02
[2019-03-18 14:00] VITALS: BP 132/64; PULSE 68; RESP 18
[2019-03-18 20:00] VITALS: BP 135/82; PULSE 102; RESP 18
[2019-03-18 21:30] VITALS: PULSE 85
[2019-03-19 02:00] VITALS: BP 148/84; PULSE 82; RESP 18
[2019-03-19] MEDS: PIPER-TAZO 3.375 GM IV (PMX) 100 ML IVPB SCH ×4 (05:58→23:31)
[2019-03-19 08:30] VITALS: BP 157/94; PULSE 93; RESP 18
--- NOTE | 2019-03-19 09:39 | PN ---
Date/Time of Note Date/Time of Note DATE: 03/19/19 TIME: 09:39 Objective Vitals Vital Signs Date Temp Pulse Resp B/P (MAP) Pulse Ox O2 O2 Flow FiO2 Time Delivery Rate 03/19/19 98.1 93 18 157/94 99 08:30 (115) 03/16/19 Room Air 08:00 Intake and Output 03/18/19 03/18/19 03/19/19 1515:00 23:00 07:00 IntakeIntake Total 440 ml 700 ml 900 ml OutputOutput Total 110 ml 305 ml 1770 ml BalanceBalance 330 ml 395 ml -870 ml Results Result Diagram: 03/19/19 0557 03/19/19 0557 Medications Medications Current Medications IV Flush (NS 3 ml) 3 ml PER PROTOCOL IV ; Start 03/12/19 at 18:00 Acetaminophen (Tylenol Tab) 650 mg Q6H PRN PO .PAIN 1-3 OR TEMP; Start 03/12/19 at 18:00 Acetaminophen/ Hydrocodone Bitart ([place] (5/325)) 1 tab Q6H PRN PO .PAIN 4-6; Start 03/12/19 at 18:00 Morphine Sulfate (morphine) 2 mg Q4H PRN IV .PAIN 7-10; Start 03/12/19 at 18:00 Piperacillin Sod/ Tazobactam Sod 100 ml @ 200 mls/hr Q6 IVPB Last administered on 03/19/19at 05:58; Admin Dose 200 MLS/HR; Start 03/13/19 at 00:00 Oxycodone/ Acetaminophen (Percocet (5/ 325)) 1 tab Q4H PRN PO .MILD PAIN (1-3); Start 03/12/19 at 22:00 Oxycodone/ Acetaminophen (Percocet (5/ 325)) 2 tab Q4H PRN PO .MODERATE PAIN (4-6); Start 03/12/19 at 22:00 Ondansetron HCl (Zofran Inj) 4 mg Q6H PRN IV NAUSEA/VOMITING; Start 03/12/19 at 22:00 VTE Prophylaxis Risk score (from Ns)>0 risk: 3 SCD applied (from Ns): Yes Lines/Catheters IV Catheter Type: Downs in Place: No Assessment/Plan Hospital Course Subjective Patient feels well, mild abdominal pain, but very controlled Objective Physical exam General: Patient is laying in bed and answers questions appropriately Mentation: Patient is alert and oriented 4, Head: Normocephalic atraumatic Eyes: EOMI, pupils reactive to light Neck: Supple, nontender, midline Respiratory: Clear to auscultation bilaterally Cardiovascular: regular rate, no obvious murmurs Gastrointestinal: Mildly-tender to palpation, bowel sounds heard. Drain still in place Neurological: Moves all extremities spontaneously Skin: Surgical site, bandage, CDI ASSESSMENT & PLAN 58-year-old male with history of methamphetamine abuse and no other significant comorbidities who came to the emergency room with abdominal pain with CT suggesting pneumoperitoneum, who was emergently taken to the OR and underwent patch of a perforated duodenal ulcer. 1. Perforated duodenal ulcer with pneumoperitoneum. -Status post oversew and plication of perforated duodenal ulcer on 03/04/2019. -Continue pain control. -Initiation of diet as per general surgery. -Continue antimicrobials including coverage for anaerobes. ID consulted for end date. 2. Sepsis with leukocytosis, tachycardia, and lactic acidosis secondary to underlying peritonitis. -Continue empiric antimicrobials including coverage for anaerobes. 3. Polysubstance abuse. -clerical warehouse worker consult. -Cessation advised. 4. Normocytic anemia. -Etiology unclear. -Monitor H&H closely. 5. Peptic ulcer disease. -Continue PPI. -Needs eventual gastroenterology evaluation including endoscopy. 6. Prediabetes. -Hemoglobin A1c 5.8. -Monitor glycemic trends. 7. Fluids, electrolytes, and nutrition. -SOft diet. 8. DVT prophylaxis. -Bilateral SCDs. 9. Plan. -Continue empiric antimicrobials. -Continue pain control. -Encourage frequent use of incentive spirometry and early ambulation. -Patient is homeless, social work nurse on board to help with placement, when patient gets stronger likely dischargeable, currently still undergoing medical care with antibiotics and general surgery management. JANUARY CALDERON March 19, 2019 09:39
--- NOTE | 2019-03-19 11:22 | QN ---
Documentation Comment Postoperative day #7 Afebrile throughout WBC slightly elevated to 12,000 today Still moderate serous ELANA drainage Plan: Continue medical management SONAL TRUONG MD March 19, 2019 11:22
--- NOTE | 2019-03-19 11:36 | CONS ---
Assessment/Plan Assessment/Plan Hospital Course (Demo Recall) Patient is alert looks comfortable no fevers overnight WBC is 12.3 platelets 679 neutrophils 65.2 BUN 12 creatinine 0.68 Antimicrobials Zosyn day #7 Physical examination: Well-developed and very thin middle-aged man who is alert in no distress. Head atraumatic normocephalic sclera nonicteric neck is supple chest rise symmetrical breath sounds diminished bases. Heart: S1-S2. Abdomen soft bowel sounds present. Right ELANA present. Extremities without cyanosis edema. Assessment: 1. Status post sepsis present on admission 2. Status post perforated viscus repair 3. History of polysubstance abuse Plan: Patient remains stable, postop day #7, surgical recommendations noted, okay discharge off antibiotics when medically cleared Consultation Date/Type/Reason Admit Date/Time Mar 12, 2019 at 18:29 Initial Consult Date 03/12/19 Type of Consult id Date/Time of Note DATE: 03/19/19 TIME: 11:36 Exam/Review of Systems Exam Vitals Vital Signs Date Temp Pulse Resp B/P (MAP) Pulse Ox O2 O2 Flow FiO2 Time Delivery Rate 03/19/19 98.1 93 18 157/94 99 08:30 (115) 03/16/19 Room Air 08:00 Intake and Output 03/18/19 03/18/19 03/19/19 1515:00 23:00 07:00 IntakeIntake Total 440 ml 700 ml 900 ml OutputOutput Total 110 ml 305 ml 1770 ml BalanceBalance 330 ml 395 ml -870 ml Results Result Diagram: 03/19/19 0557 03/19/19 0557 Results 24hrs Laboratory Tests Test 03/19/19 05:57 White Blood Count 12.3 H Red Blood Count 2.91 L Hemoglobin 8.4 L Hematocrit 25.7 L Mean Corpuscular Volume 88.3 Mean Corpuscular Hemoglobin 28.9 L Mean Corpuscular Hemoglobin Concent 32.7 Red Cell Distribution Width 15.6 H Platelet Count 679 H Mean Platelet Volume 8.1 Immature Granulocytes % 1.500 H Neutrophils % 65.2 Lymphocytes % 19.2 Monocytes % 10.8 Eosinophils % 2.9 Basophils % 0.4 Nucleated Red Blood Cells % 0.0 Immature Granulocytes # 0.180 H Neutrophils # 8.0 H Lymphocytes # 2.4 Monocytes # 1.3 H Eosinophils # 0.4 Basophils # 0.1 Nucleated Red Blood Cells # 0.0 Sodium Level 139 Potassium Level 4.1 Chloride Level 103 Carbon Dioxide Level 30 Anion Gap 6 Blood Urea Nitrogen 12 Creatinine 0.68 Est Glomerular Filtrat Rate mL/min > 60 Glucose Level 102 Calcium Level 8.6 Phosphorus Level 2.9 Magnesium Level 2.1 Medications Medication Current Medications IV Flush (NS 3 ml) 3 ml PER PROTOCOL IV ; Start 03/12/19 at 18:00 Acetaminophen (Tylenol Tab) 650 mg Q6H PRN PO .PAIN 1-3 OR TEMP; Start 03/12/19 at 18:00 Acetaminophen/ Hydrocodone Bitart ([place] (5/325)) 1 tab Q6H PRN PO .PAIN 4-6; Start 03/12/19 at 18:00 Morphine Sulfate (morphine) 2 mg Q4H PRN IV .PAIN 7-10; Start 03/12/19 at 18:00 Piperacillin Sod/ Tazobactam Sod 100 ml @ 200 mls/hr Q6 IVPB Last administered on 03/19/19at 05:58; Admin Dose 200 MLS/HR; Start 03/13/19 at 00:00 Oxycodone/ Acetaminophen (Percocet (5/ 325)) 1 tab Q4H PRN PO .MILD PAIN (1-3); Start 03/12/19 at 22:00 Oxycodone/ Acetaminophen (Percocet (5/ 325)) 2 tab Q4H PRN PO .MODERATE PAIN (4-6); Start 03/12/19 at 22:00 Ondansetron HCl (Zofran Inj) 4 mg Q6H PRN IV NAUSEA/VOMITING; Start 03/12/19 at 22:00 SHERWIN BONNER NP March 19, 2019 11:36
[2019-03-19 14:22] VITALS: BP 129/70; PULSE 100; RESP 19
[2019-03-19 20:00] VITALS: BP 133/76; PULSE 97; RESP 17
[2019-03-19] MEDS ORDERED: ZOLPIDEM 5 MG TAB PO PRN (20:30)
[2019-03-20 02:00] VITALS: BP 138/78; PULSE 84; RESP 19
[2019-03-20] MEDS: PIPER-TAZO 3.375 GM IV (PMX) 100 ML IVPB SCH (05:20)
[2019-03-20 08:00] VITALS: BP 136/78; PULSE 77; RESP 17
--- NOTE | 2019-03-20 13:31 | CONS ---
Assessment/Plan Assessment/Plan Hospital Course (Demo Recall) Patient is alert looks comfortable tolerates regular diet no fevers no nausea vomiting diarrhea WBC today went up to 14.2 neutrophils 69.6 BUN 12 creatinine 0.67 Antimicrobials: Status post 7 days of Zosyn Physical examination: Well-developed and very thin middle-aged man who is alert in no distress. Head atraumatic normocephalic sclera nonicteric neck is supple chest rise symmetrical breath sounds diminished bases. Heart: S1-S2. Abdomen soft bowel sounds present. Right ELANA present. Extremities without cyanosis edema. Assessment: 1. Status post sepsis present on admission 2. Status post perforated viscus repair 3. History of polysubstance abuse Plan: Patient remains stable, postop day # 8, Zosyn was discontinued this morning, we will monitor his labs and if WBC continues to increase consider repeating CT of the abdomen, follow surgical recommendations Consultation Date/Type/Reason Admit Date/Time Mar 12, 2019 at 18:29 Initial Consult Date 03/12/19 Type of Consult id Date/Time of Note DATE: 03/20/19 TIME: 13:29 Exam/Review of Systems Exam Vitals Vital Signs Date Temp Pulse Resp B/P (MAP) Pulse Ox O2 O2 Flow FiO2 Time Delivery Rate 03/20/19 98.0 77 17 136/78 100 Room Air 08:00 (97) Intake and Output 03/19/19 03/19/19 03/20/19 1515:00 23:00 07:00 IntakeIntake Total 580 ml 100 ml 1280 ml OutputOutput Total 700 ml 80 ml 880 ml BalanceBalance -120 ml 20 ml 400 ml Results Result Diagram: 03/20/19 0517 03/20/19 0517 Results 24hrs Laboratory Tests Test 03/20/19 05:17 White Blood Count 14.2 H Red Blood Count 2.94 L Hemoglobin 8.5 L Hematocrit 26.0 L Mean Corpuscular Volume 88.4 Mean Corpuscular Hemoglobin 28.9 L Mean Corpuscular Hemoglobin Concent 32.7 Red Cell Distribution Width 15.9 H Platelet Count 817 #H Mean Platelet Volume 8.3 Immature Granulocytes % 1.000 H Neutrophils % 69.6 Lymphocytes % 17.2 Monocytes % 8.7 Eosinophils % 3.0 Basophils % 0.5 Nucleated Red Blood Cells % 0.0 Immature Granulocytes # 0.140 H Neutrophils # 9.8 H Lymphocytes # 2.4 Monocytes # 1.2 H Eosinophils # 0.4 Basophils # 0.1 Nucleated Red Blood Cells # 0.0 Sodium Level 139 Potassium Level 3.8 Chloride Level 105 Carbon Dioxide Level 30 Anion Gap 4 L Blood Urea Nitrogen 12 Creatinine 0.67 Est Glomerular Filtrat Rate mL/min > 60 Glucose Level 97 Calcium Level 8.5 Phosphorus Level 2.6 Magnesium Level 2.1 Medications Medication Current Medications IV Flush (NS 3 ml) 3 ml PER PROTOCOL IV ; Start 03/12/19 at 18:00 Acetaminophen (Tylenol Tab) 650 mg Q6H PRN PO .PAIN 1-3 OR TEMP; Start 03/12/19 at 18:00 Acetaminophen/ Hydrocodone Bitart ([place] (5/325)) 1 tab Q6H PRN PO .PAIN 4-6; Start 03/12/19 at 18:00 Morphine Sulfate (morphine) 2 mg Q4H PRN IV .PAIN 7-10; Start 03/12/19 at 18:00 Oxycodone/ Acetaminophen (Percocet (5/ 325)) 1 tab Q4H PRN PO .MILD PAIN (1-3); Start 03/12/19 at 22:00 Oxycodone/ Acetaminophen (Percocet (5/ 325)) 2 tab Q4H PRN PO .MODERATE PAIN (4-6); Start 03/12/19 at 22:00 Ondansetron HCl (Zofran Inj) 4 mg Q6H PRN IV NAUSEA/VOMITING; Start 03/12/19 at 22:00 SHERWIN BONNER NP March 20, 2019 13:31
[2019-03-20 14:00] VITALS: BP 123/76; PULSE 103; RESP 18
--- NOTE | 2019-03-20 14:01 | PN ---
Date/Time of Note Date/Time of Note DATE: 03/20/19 TIME: 14:00 Objective Vitals Vital Signs Date Temp Pulse Resp B/P (MAP) Pulse Ox O2 O2 Flow FiO2 Time Delivery Rate 03/20/19 98.0 77 17 136/78 100 Room Air 08:00 (97) Intake and Output 03/19/19 03/19/19 03/20/19 1414:59 22:59 06:59 IntakeIntake Total 580 ml 100 ml 1280 ml OutputOutput Total 700 ml 80 ml 880 ml BalanceBalance -120 ml 20 ml 400 ml Results Result Diagram: 03/20/1951603/20/19516 Medications Medications Current Medications IV Flush (NS 3 ml) 3 ml PER PROTOCOL IV ; Start 03/12/19 at 18:00 Acetaminophen (Tylenol Tab) 650 mg Q6H PRN PO .PAIN 1-3 OR TEMP; Start 03/12/19 at 18:00 Acetaminophen/ Hydrocodone Bitart ([place] (5/325)) 1 tab Q6H PRN PO .PAIN 4-6; Start 03/12/19 at 18:00 Morphine Sulfate (morphine) 2 mg Q4H PRN IV .PAIN 7-10; Start 03/12/19 at 18:00 Oxycodone/ Acetaminophen (Percocet (5/ 325)) 1 tab Q4H PRN PO .MILD PAIN (1-3); Start 03/12/19 at 22:00 Oxycodone/ Acetaminophen (Percocet (5/ 325)) 2 tab Q4H PRN PO .MODERATE PAIN (4-6); Start 03/12/19 at 22:00 Ondansetron HCl (Zofran Inj) 4 mg Q6H PRN IV NAUSEA/VOMITING; Start 03/12/19 at 22:00 VTE Prophylaxis Risk score (from Nsg)>0 risk: 3 SCD applied (from Nsg): Yes Lines/Catheters IV Catheter Type: Downs in Place: No Assessment/Plan Hospital Course Subjective Patient feels well, still mild abdominal pain, but very controlled Objective Physical exam General: Patient is laying in bed and answers questions appropriately Mentation: Patient is alert and oriented 4, Head: Normocephalic atraumatic Eyes: EOMI, pupils reactive to light Neck: Supple, nontender, midline Respiratory: Clear to auscultation bilaterally Cardiovascular: regular rate, no obvious murmurs Gastrointestinal: Mildly-tender to palpation, bowel sounds heard. Drain still in place Neurological: Moves all extremities spontaneously Skin: Surgical site, bandage, CDI ASSESSMENT & PLAN 58-year-old male with history of methamphetamine abuse and no other significant comorbidities who came to the emergency room with abdominal pain with CT suggesting pneumoperitoneum, who was emergently taken to the OR and underwent patch of a perforated duodenal ulcer. 1. Perforated duodenal ulcer with pneumoperitoneum. -Status post oversew and plication of perforated duodenal ulcer on 03/04/2019. -Continue pain control. -Initiation of diet as per general surgery. -abx stopped 2. Sepsis with leukocytosis, tachycardia, and lactic acidosis secondary to underlying peritonitis. -abx stopped 3. Polysubstance abuse. -tar pot worker consult. -Cessation advised. 4. Normocytic anemia. -Etiology unclear. -Monitor H&H closely. 5. Peptic ulcer disease. -Continue PPI. -Needs eventual gastroenterology evaluation including endoscopy. 6. Prediabetes. -Hemoglobin A1c 5.8. -Monitor glycemic trends. 7. Fluids, electrolytes, and nutrition. -SOft diet. 8. DVT prophylaxis. -Bilateral SCDs. 9. Plan. -Continue empiric antimicrobials. -Continue pain control. -Encourage frequent use of incentive spirometry and early ambulation. -Patient is homeless, social services on board to help with placement, when patient gets stronger likely dischargeable, but discharging with drain in would be challenging JANUARY CALDERON March 20, 2019 14:01
[2019-03-20 20:00] VITALS: BP 141/87; PULSE 102; RESP 18
[2019-03-20] MEDS: ZOLPIDEM 5 MG TAB PO PRN (21:11)
[2019-03-21 02:00] VITALS: BP 145/80; PULSE 77; RESP 19
[2019-03-21 08:00] VITALS: BP 132/84; PULSE 76; RESP 18
--- NOTE | 2019-03-21 12:20 | CONS ---
Assessment/Plan Assessment/Plan Hospital Course (Demo Recall) Patient is alert looks comfortable tolerates regular diet no fevers no nausea vomiting diarrhea WBC today went up to 14.2 neutrophils 69.6 BUN 12 creatinine 0.67 Antimicrobials: Status post 7 days of Zosyn Physical examination: Well-developed and very thin middle-aged man who is alert in no distress. Head atraumatic normocephalic sclera nonicteric neck is supple chest rise symmetrical breath sounds diminished bases. Heart: S1-S2. Abdomen soft bowel sounds present. Right ELANA present. Extremities without cyanosis edema. Assessment: 1. Status post sepsis present on admission 2. Status post perforated viscus repair 3. History of polysubstance abuse Plan: Patient remains stable, postop day # 9, s/p Zosyn, wbc stable, will follow surgical recommendations Consultation Date/Type/Reason Admit Date/Time Mar 12, 2019 at 18:29 Initial Consult Date 03/12/19 Type of Consult id Date/Time of Note DATE: 03/21/19 TIME: 12:18 Exam/Review of Systems Exam Vitals Vital Signs Date Temp Pulse Resp B/P (MAP) Pulse Ox O2 O2 Flow FiO2 Time Delivery Rate 03/21/19 98.0 76 18 132/84 100 Nasal 08:00 (100) Cannula Intake and Output 03/20/19 03/20/19 03/21/19 1515:00 23:00 07:00 IntakeIntake Total 360 ml 1200 ml 200 ml OutputOutput Total 100 ml 50 ml 580 ml BalanceBalance 260 ml 1150 ml -380 ml Results Result Diagram: 03/21/19 0835 03/21/19 0835 Results 24hrs Laboratory Tests Test 03/21/19 08:35 White Blood Count 12.4 H Red Blood Count 3.02 L Hemoglobin 8.7 L Hematocrit 27.0 L Mean Corpuscular Volume 89.4 Mean Corpuscular Hemoglobin 28.8 L Mean Corpuscular Hemoglobin Concent 32.2 Red Cell Distribution Width 16.3 H Platelet Count 954 H Mean Platelet Volume 7.8 Immature Granulocytes % 0.800 H Neutrophils % 67.6 Lymphocytes % 21.1 Monocytes % 6.5 Eosinophils % 3.4 Basophils % 0.6 Nucleated Red Blood Cells % 0.0 Immature Granulocytes # 0.100 H Neutrophils # 8.4 H Lymphocytes # 2.6 Monocytes # 0.8 Eosinophils # 0.4 Basophils # 0.1 Nucleated Red Blood Cells # 0.0 Sodium Level 138 Potassium Level 3.9 Chloride Level 100 Carbon Dioxide Level 33 H Anion Gap 5 Blood Urea Nitrogen 11 Creatinine 0.64 Est Glomerular Filtrat Rate mL/min > 60 Glucose Level 152 Calcium Level 8.6 Phosphorus Level 2.7 Magnesium Level 2.1 Medications Medication Current Medications IV Flush (NS 3 ml) 3 ml PER PROTOCOL IV ; Start 03/12/19 at 18:00 Acetaminophen (Tylenol Tab) 650 mg Q6H PRN PO .PAIN 1-3 OR TEMP; Start 03/12/19 at 18:00 Acetaminophen/ Hydrocodone Bitart ([place] (5/325)) 1 tab Q6H PRN PO .PAIN 4-6; Start 03/12/19 at 18:00 Morphine Sulfate (morphine) 2 mg Q4H PRN IV .PAIN 7-10; Start 03/12/19 at 18:00 Oxycodone/ Acetaminophen (Percocet (5/ 325)) 1 tab Q4H PRN PO .MILD PAIN (1-3); Start 03/12/19 at 22:00 Oxycodone/ Acetaminophen (Percocet (5/ 325)) 2 tab Q4H PRN PO .MODERATE PAIN (4-6); Start 03/12/19 at 22:00 Ondansetron HCl (Zofran Inj) 4 mg Q6H PRN IV NAUSEA/VOMITING; Start 03/12/19 at 22:00 Zolpidem Tartrate (Ambien) 5 mg HS PRN PO INSOMNIA Last administered on 03/20/19at 21:11; Admin Dose 5 MG; Start 03/20/19 at 21:30 SHERWIN BONNER NP March 21, 2019 12:20
[2019-03-21 14:00] VITALS: BP 122/70; PULSE 69; RESP 18
--- NOTE | 2019-03-21 14:57 | PN ---
Date/Time of Note Date/Time of Note DATE: 03/21/19 TIME: 14:57 Objective Vitals Vital Signs Date Temp Pulse Resp B/P (MAP) Pulse Ox O2 O2 Flow FiO2 Time Delivery Rate 03/21/19 98.0 69 18 122/70 99 Room Air 14:00 (87) Intake and Output 03/20/19 03/20/19 03/21/19 1515:00 23:00 07:00 IntakeIntake Total 360 ml 1200 ml 200 ml OutputOutput Total 100 ml 50 ml 580 ml BalanceBalance 260 ml 1150 ml -380 ml Results Result Diagram: 03/21/19 0835 03/21/19 0835 Medications Medications Current Medications IV Flush (NS 3 ml) 3 ml PER PROTOCOL IV ; Start 03/12/19 at 18:00 Acetaminophen (Tylenol Tab) 650 mg Q6H PRN PO .PAIN 1-3 OR TEMP; Start 03/12/19 at 18:00 Acetaminophen/ Hydrocodone Bitart ([place] (5/325)) 1 tab Q6H PRN PO .PAIN 4-6; Start 03/12/19 at 18:00 Morphine Sulfate (morphine) 2 mg Q4H PRN IV .PAIN 7-10; Start 03/12/19 at 18:00 Oxycodone/ Acetaminophen (Percocet (5/ 325)) 1 tab Q4H PRN PO .MILD PAIN (1-3); Start 03/12/19 at 22:00 Oxycodone/ Acetaminophen (Percocet (5/ 325)) 2 tab Q4H PRN PO .MODERATE PAIN (4-6); Start 03/12/19 at 22:00 Ondansetron HCl (Zofran Inj) 4 mg Q6H PRN IV NAUSEA/VOMITING; Start 03/12/19 at 22:00 Zolpidem Tartrate (Ambien) 5 mg HS PRN PO INSOMNIA Last administered on 03/20/19 at 21:11; Admin Dose 5 MG; Start 03/20/19 at 21:30 VTE Prophylaxis Risk score (from Nsg)>0 risk: 3 SCD applied (from Nsg): Yes Lines/Catheters IV Catheter Type: Downs in Place: No Assessment/Plan Hospital Course Subjective Patient feels well, still mild abdominal pain, but very controlled Objective Physical exam General: Patient is laying in bed and answers questions appropriately Mentation: Patient is alert and oriented 4, Head: Normocephalic atraumatic Eyes: EOMI, pupils reactive to light Neck: Supple, nontender, midline Respiratory: Clear to auscultation bilaterally Cardiovascular: regular rate, no obvious murmurs Gastrointestinal: Mildly-tender to palpation, bowel sounds heard. Drain still in place Neurological: Moves all extremities spontaneously Skin: Surgical site, bandage, CDI ASSESSMENT & PLAN 58-year-old male with history of methamphetamine abuse and no other significant comorbidities who came to the emergency room with abdominal pain with CT valiente ggesting pneumoperitoneum, who was emergently taken to the OR and underwent patch of a perforated duodenal ulcer. 1. Perforated duodenal ulcer with pneumoperitoneum. -Status post oversew and plication of perforated duodenal ulcer on 03/04/2019. -Continue pain control. -Initiation of diet as per general surgery. -abx stopped 2. Sepsis with leukocytosis, tachycardia, and lactic acidosis secondary to underlying peritonitis. -abx stopped 3. Polysubstance abuse. -general farmworker consult. -Cessation advised. 4. Normocytic anemia. -Etiology unclear. -Monitor H&H closely. 5. Peptic ulcer disease. -Continue PPI. -Needs eventual gastroenterology evaluation including endoscopy. 6. Prediabetes. -Hemoglobin A1c 5.8. -Monitor glycemic trends. 7. Fluids, electrolytes, and nutrition. -SOft diet. 8. DVT prophylaxis. -Bilateral SCDs. 9. Plan. -Continue empiric antimicrobials. -Continue pain control. -Encourage frequent use of incentive spirometry and early ambulation. -Patient is homeless, perinatal social worker on board to help with placement, when patient gets stronger likely dischargeable, but discharging with drain in would be challenging JANUARY CALDERON March 21, 2019 14:57
[2019-03-21 20:00] VITALS: BP 130/75; PULSE 106; RESP 18
[2019-03-22 02:00] VITALS: BP 143/75; PULSE 79; RESP 19
[2019-03-22 10:05] VITALS: BP 133/77; PULSE 82; RESP 18
--- NOTE | 2019-03-22 14:07 | PN ---
Date/Time of Note Date/Time of Note DATE: 03/22/19 TIME: 14:07 Objective Vitals Vital Signs Date Temp Pulse Resp B/P (MAP) Pulse Ox O2 O2 Flow FiO2 Time Delivery Rate 03/22/19 98.4 82 18 133/77 99 10:05 (95) 03/21/19 Room Air 14:00 Intake and Output 03/21/19 03/21/19 03/22/19 1515:00 23:00 07:00 IntakeIntake Total 1100 ml 900 ml OutputOutput Total 60 ml BalanceBalance 1040 ml 900 ml Results Result Diagram: 03/22/19 0551 03/22/19 0551 Medications Medications Current Medications IV Flush (NS 3 ml) 3 ml PER PROTOCOL IV ; Start 03/12/19 at 18:00 Acetaminophen (Tylenol Tab) 650 mg Q6H PRN PO .PAIN 1-3 OR TEMP; Start 03/12/19 at 18:00 Acetaminophen/ Hydrocodone Bitart ([place] (5/325)) 1 tab Q6H PRN PO .PAIN 4-6; Start 03/12/19 at 18:00 Morphine Sulfate (morphine) 2 mg Q4H PRN IV .PAIN 7-10; Start 03/12/19 at 18:00 Oxycodone/ Acetaminophen (Percocet (5/ 325)) 1 tab Q4H PRN PO .MILD PAIN (1-3); Start 03/12/19 at 22:00 Oxycodone/ Acetaminophen (Percocet (5/ 325)) 2 tab Q4H PRN PO .MODERATE PAIN (4-6); Start 03/12/19 at 22:00 Ondansetron HCl (Zofran Inj) 4 mg Q6H PRN IV NAUSEA/VOMITING; Start 03/12/19 at 22:00 Zolpidem Tartrate (Ambien) 5 mg HS PRN PO INSOMNIA Last administered on 03/20/19at 21:11; Admin Dose 5 MG; Start 03/20/19 at 21:30 VTE Prophylaxis Risk score (from Nsg)>0 risk: 4 SCD applied (from Nsg): Yes Lines/Catheters IV Catheter Type: Downs in Place: No Assessment/Plan Hospital Course Subjective Patient feels well, Objective Physical exam General: Patient is laying in bed and answers questions appropriately Mentation: Patient is alert and oriented 4, Head: Normocephalic atraumatic Eyes: EOMI, pupils reactive to light Neck: Supple, nontender, midline Respiratory: Clear to auscultation bilaterally Cardiovascular: regular rate, no obvious murmurs Gastrointestinal: Mildly-tender to palpation, bowel sounds heard. Drain still in place Neurological: Moves all extremities spontaneously Skin: Surgical site, bandage, CDI ASSESSMENT & PLAN 58-year-old male with history of methamphetamine abuse and no other significant comorbidities who came to the emergency room with abdominal pain with CT suggesting pneumoperitoneum, who was emergently taken to the OR and underwent patch of a perforated duodenal ulcer. 1. Perforated duodenal ulcer with pneumoperitoneum. -Status post oversew and plication of perforated duodenal ulcer on 03/04/2019. -Continue pain control. -Initiation of diet as per general surgery. -abx stopped 2. Sepsis with leukocytosis, tachycardia, and lactic acidosis secondary to underlying peritonitis. -abx stopped 3. Polysubstance abuse. -precast concrete ironworker consult. -Cessation advised. 4. Normocytic anemia. -Etiology unclear. -Monitor H&H closely. 5. Peptic ulcer disease. -Continue PPI. -Needs eventual gastroenterology evaluation including endoscopy. 6. Prediabetes. -Hemoglobin A1c 5.8. -Monitor glycemic trends. 7. Fluids, electrolytes, and nutrition. -SOft diet. 8. DVT prophylaxis. -Bilateral SCDs. 9. Plan. -Continue empiric antimicrobials. -Continue pain control. -Encourage frequent use of incentive spirometry and early ambulation. -Patient is homeless, social group worker on board to help with placement, when patient gets stronger likely dischargeable, but discharging with drain in would be challenging JANUARY CALDERON March 22, 2019 14:07
[2019-03-22 14:34] VITALS: BP 128/77; PULSE 106; RESP 18
--- NOTE | 2019-03-22 14:35 | CONS ---
Assessment/Plan Assessment/Plan Hospital Course (Demo Recall) Patient is alert looks comfortable no fevers Antimicrobials: Status post 7 days of Zosyn Physical examination: Well-developed and very thin middle-aged man who is alert in no distress. Head atraumatic normocephalic sclera nonicteric neck is supple chest rise symmetrical breath sounds diminished bases. Heart: S1-S2. Abdomen soft bowel sounds present. Right ELANA present. Extremities without cyanosis edema. Assessment: 1. Status post sepsis present on admission 2. Status post perforated viscus repair 3. History of polysubstance abuse Plan: Patient remains stable, off abx Consultation Date/Type/Reason Admit Date/Time Mar 12, 2019 at 18:29 Initial Consult Date 03/12/19 Type of Consult id Date/Time of Note DATE: 03/22/19 TIME: 14:35 Exam/Review of Systems Exam Vitals Vital Signs Date Temp Pulse Resp B/P (MAP) Pulse Ox O2 O2 Flow FiO2 Time Delivery Rate 03/22/19 98.4 82 18 133/77 99 10:05 (95) 03/21/19 Room Air 14:00 Intake and Output 03/21/19 03/21/19 03/22/19 1515:00 23:00 07:00 IntakeIntake Total 1100 ml 900 ml OutputOutput Total 60 ml BalanceBalance 1040 ml 900 ml Results Result Diagram: 03/22/19 0551 03/22/19 0551 Results 24hrs Laboratory Tests Test 03/22/19 05:51 White Blood Count 11.5 H Red Blood Count 2.83 L Hemoglobin 8.2 L Hematocrit 25.3 L Mean Corpuscular Volume 89.4 Mean Corpuscular Hemoglobin 29.0 Mean Corpuscular Hemoglobin Concent 32.4 Red Cell Distribution Width 16.2 H Platelet Count 1163 #H Mean Platelet Volume 7.7 Immature Granulocytes % 0.800 H Neutrophils % 69.1 Lymphocytes % 18.3 Monocytes % 7.6 Eosinophils % 3.3 Basophils % 0.9 Nucleated Red Blood Cells % 0.0 Immature Granulocytes # 0.090 H Neutrophils # 8.0 H Lymphocytes # 2.1 Monocytes # 0.9 Eosinophils # 0.4 Basophils # 0.1 Nucleated Red Blood Cells # 0.0 Pathologist Review (Hematology) YES Sodium Level 140 Potassium Level 4.6 Chloride Level 106 Carbon Dioxide Level 30 Anion Gap 4 L Blood Urea Nitrogen 12 Creatinine 0.78 Est Glomerular Filtrat Rate mL/min > 60 Glucose Level 97 # Calcium Level 8.5 Phosphorus Level 3.1 Magnesium Level 2.2 Medications Medication Current Medications IV Flush (NS 3 ml) 3 ml PER PROTOCOL IV ; Start 03/12/19 at 18:00 Acetaminophen (Tylenol Tab) 650 mg Q6H PRN PO .PAIN 1-3 OR TEMP; Start 03/12/19 at 18:00 Acetaminophen/ Hydrocodone Bitart ([place] (5/325)) 1 tab Q6H PRN PO .PAIN 4-6; Start 03/12/19 at 18:00 Morphine Sulfate (morphine) 2 mg Q4H PRN IV .PAIN 7-10; Start 03/12/19 at 18:00 Oxycodone/ Acetaminophen (Percocet (5/ 325)) 1 tab Q4H PRN PO .MILD PAIN (1-3); Start 03/12/19 at 22:00 Oxycodone/ Acetaminophen (Percocet (5/ 325)) 2 tab Q4H PRN PO .MODERATE PAIN (4-6); Start 03/12/19 at 22:00 Ondansetron HCl (Zofran Inj) 4 mg Q6H PRN IV NAUSEA/VOMITING; Start 03/12/19 at 22:00 Zolpidem Tartrate (Ambien) 5 mg HS PRN PO INSOMNIA Last administered on 03/20/19at 21:11; Admin Dose 5 MG; Start 03/20/19 at 21:30 SHERWIN BONNER NP March 22, 2019 14:35
[2019-03-22 20:25] VITALS: BP 126/79; PULSE 110; RESP 20
[2019-03-23 02:04] VITALS: BP 142/78; PULSE 85; RESP 18
[2019-03-23 08:00] VITALS: BP 137/85; PULSE 100; RESP 18
--- NOTE | 2019-03-23 11:44 | CONS ---
Assessment/Plan Assessment/Plan Hospital Course (Demo Recall) No events over night. Patient is alert looks comfortable no fevers Antimicrobials: none Physical examination: Well-developed and very thin middle-aged man who is alert in no distress. Head atraumatic normocephalic sclera nonicteric neck is supple chest rise symmetrical breath sounds diminished bases. Heart: S1-S2. Abdomen soft bowel sounds present. Right ELANA present. Extremities without cyanosis edema. Assessment: 1. Status post sepsis present on admission 2. Status post perforated viscus repair 3. History of polysubstance abuse Plan: Patient remains stable, off abx Consultation Date/Type/Reason Admit Date/Time Mar 12, 2019 at 18:29 Initial Consult Date 03/12/19 Type of Consult id Date/Time of Note DATE: 03/23/19 TIME: 11:43 Exam/Review of Systems Exam Vitals Vital Signs Date Temp Pulse Resp B/P (MAP) Pulse Ox O2 O2 Flow FiO2 Time Delivery Rate 03/23/19 98.0 100 18 137/85 100 Room Air 08:00 (102) Intake and Output 03/22/19 03/22/19 03/23/19 1515:00 23:00 07:00 IntakeIntake Total 840 ml 480 ml 300 ml OutputOutput Total 1190 ml 600 ml 1210 ml BalanceBalance -350 ml -120 ml -910 ml Results Result Diagram: 03/23/19 0614 03/23/19 0614 Results 24hrs Laboratory Tests Test 03/23/19 06:14 White Blood Count 11.5 H Red Blood Count 2.88 L Hemoglobin 8.3 L Hematocrit 26.2 L Mean Corpuscular Volume 91.0 Mean Corpuscular Hemoglobin 28.8 L Mean Corpuscular Hemoglobin Concent 31.7 L Red Cell Distribution Width 16.8 H Platelet Count 1040 H Mean Platelet Volume 7.5 Immature Granulocytes % 0.600 H Neutrophils % 69.5 Lymphocytes % 19.6 Monocytes % 6.2 Eosinophils % 3.3 Basophils % 0.8 Nucleated Red Blood Cells % 0.0 Immature Granulocytes # 0.070 H Neutrophils # 8.0 H Lymphocytes # 2.3 Monocytes # 0.7 Eosinophils # 0.4 Basophils # 0.1 Nucleated Red Blood Cells # 0.0 Sodium Level 140 Potassium Level 4.9 Chloride Level 104 Carbon Dioxide Level 30 Anion Gap 6 Blood Urea Nitrogen 10 Creatinine 0.72 Est Glomerular Filtrat Rate mL/min > 60 Glucose Level 102 Calcium Level 9.0 Phosphorus Level 3.5 Magnesium Level 2.1 Medications Medication Current Medications IV Flush (NS 3 ml) 3 ml PER PROTOCOL IV ; Start 03/12/19 at 18:00 Acetaminophen (Tylenol Tab) 650 mg Q6H PRN PO .PAIN 1-3 OR TEMP; Start 03/12/19 at 18:00 Acetaminophen/ Hydrocodone Bitart ([place] (5/325)) 1 tab Q6H PRN PO .PAIN 4-6; Start 03/12/19 at 18:00 Morphine Sulfate (morphine) 2 mg Q4H PRN IV .PAIN 7-10; Start 03/12/19 at 18:00 Oxycodone/ Acetaminophen (Percocet (5/ 325)) 1 tab Q4H PRN PO .MILD PAIN (1-3); Start 03/12/19 at 22:00 Oxycodone/ Acetaminophen (Percocet (5/ 325)) 2 tab Q4H PRN PO .MODERATE PAIN (4-6); Start 03/12/19 at 22:00 Ondansetron HCl (Zofran Inj) 4 mg Q6H PRN IV NAUSEA/VOMITING; Start 03/12/19 at 22:00 Zolpidem Tartrate (Ambien) 5 mg HS PRN PO INSOMNIA Last administered on 03/20/19at 21:11; Admin Dose 5 MG; Start 03/20/19 at 21:30 SHERWIN BONNER NP March 23, 2019 11:44
--- NOTE | 2019-03-23 14:14 | PN ---
Date/Time of Note Date/Time of Note DATE: 03/23/19 TIME: 14:14 Objective Vitals Vital Signs Date Temp Pulse Resp B/P (MAP) Pulse Ox O2 O2 Flow FiO2 Time Delivery Rate 03/23/19 98.0 100 18 137/85 100 Room Air 08:00 (102) Intake and Output 03/22/19 03/22/19 03/23/19 1515:00 23:00 07:00 IntakeIntake Total 840 ml 480 ml 300 ml OutputOutput Total 1190 ml 600 ml 1210 ml BalanceBalance -350 ml -120 ml -910 ml Results Result Diagram: 03/23/19 0614 03/23/19 0614 Medications Medications Current Medications IV Flush (NS 3 ml) 3 ml PER PROTOCOL IV ; Start 03/12/19 at 18:00 Acetaminophen (Tylenol Tab) 650 mg Q6H PRN PO .PAIN 1-3 OR TEMP; Start 03/12/19 at 18:00 Acetaminophen/ Hydrocodone Bitart ([place] (5/325)) 1 tab Q6H PRN PO .PAIN 4-6; Start 03/12/19 at 18:00 Morphine Sulfate (morphine) 2 mg Q4H PRN IV .PAIN 7-10; Start 03/12/19 at 18:00 Oxycodone/ Acetaminophen (Percocet (5/ 325)) 1 tab Q4H PRN PO .MILD PAIN (1-3); Start 03/12/19 at 22:00 Oxycodone/ Acetaminophen (Percocet (5/ 325)) 2 tab Q4H PRN PO .MODERATE PAIN (4-6); Start 03/12/19 at 22:00 Ondansetron HCl (Zofran Inj) 4 mg Q6H PRN IV NAUSEA/VOMITING; Start 03/12/19 at 22:00 Zolpidem Tartrate (Ambien) 5 mg HS PRN PO INSOMNIA Last administered on 03/20/19at 21:11; Admin Dose 5 MG; Start 03/20/19 at 21:30 VTE Prophylaxis Risk score (from Ns)>0 risk: 3 SCD applied (from Ns): Yes Lines/Catheters IV Catheter Type: Downs in Place: No Assessment/Plan Hospital Course Subjective Patient feels well, Objective Physical exam General: Patient is laying in bed and answers questions appropriately Mentation: Patient is alert and oriented 4, Head: Normocephalic atraumatic Eyes: EOMI, pupils reactive to light Neck: Supple, nontender, midline Respiratory: Clear to auscultation bilaterally Cardiovascular: regular rate, no obvious murmurs Gastrointestinal: Mildly-tender to palpation, bowel sounds heard. Drain still in place Neurological: Moves all extremities spontaneously Skin: Surgical site, bandage, CDI ASSESSMENT & PLAN 58-year-old male with history of methamphetamine abuse and no other significant comorbidities who came to the emergency room with abdominal pain with CT suggesting pneumoperitoneum, who was emergently taken to the OR and underwent patch of a perforated duodenal ulcer. 1. Perforated duodenal ulcer with pneumoperitoneum. -Status post oversew and plication of perforated duodenal ulcer on 03/04/2019. -Continue pain control. -Initiation of diet as per general surgery. -abx stopped 2. Sepsis with leukocytosis, tachycardia, and lactic acidosis secondary to underlying peritonitis. -abx stopped 3. Polysubstance abuse. -residential program worker consult. -Cessation advised. 4. Normocytic anemia. -Etiology unclear. -Monitor H&H closely. 5. Peptic ulcer disease. -Continue PPI. -Needs eventual gastroenterology evaluation including endoscopy. 6. Prediabetes. -Hemoglobin A1c 5.8. -Monitor glycemic trends. 7. Fluids, electrolytes, and nutrition. -SOft diet. 8. DVT prophylaxis. -Bilateral SCDs. 9. Plan. -Continue empiric antimicrobials. -Continue pain control. -Encourage frequent use of incentive spirometry and early ambulation. -Patient is homeless, social worker psychiatric on board to help with placement, when patient gets stronger likely dischargeable, but discharging with drain in would be challenging JANUARY CALDERON March 23, 2019 14:14
[2019-03-23 14:52] VITALS: BP 131/74; PULSE 97; RESP 17
[2019-03-23 20:40] VITALS: BP 121/71; PULSE 100; RESP 18
[2019-03-24 02:07] VITALS: BP 142/70; PULSE 93; RESP 20
[2019-03-24 08:48] VITALS: BP 126/80; PULSE 88; RESP 18
--- NOTE | 2019-03-24 11:51 | CONS ---
Assessment/Plan Assessment/Plan Hospital Course (Demo Recall) All noted. No events over night. no fevers/n/v/d Antimicrobials: none Physical examination: Well-developed and very thin middle-aged man who is alert in no distress. Head atraumatic normocephalic sclera nonicteric neck is supple chest rise symmetrical breath sounds diminished bases. Heart: S1-S2. Abdomen soft bowel sounds present. Right ELANA present. Extremities without cyanosis edema. Assessment: 1. Status post sepsis present on admission 2. Status post perforated viscus repair 3. History of polysubstance abuse Plan: Patient remains stable, continue observing off abx Consultation Date/Type/Reason Admit Date/Time Mar 12, 2019 at 18:29 Initial Consult Date 03/12/19 Type of Consult id Date/Time of Note DATE: 03/24/19 TIME: 11:50 Exam/Review of Systems Exam Vitals Vital Signs Date Temp Pulse Resp B/P (MAP) Pulse Ox O2 O2 Flow FiO2 Time Delivery Rate 03/24/19 97.8 88 18 126/80 99 08:48 (95) 03/23/19 Room Air 20:40 Intake and Output 03/23/19 03/23/19 03/24/19 1414:59 22:59 06:59 IntakeIntake Total 720 ml 400 ml 350 ml OutputOutput Total 300 ml 55 ml 10 ml BalanceBalance 420 ml 345 ml 340 ml Results Result Diagram: 03/23/19 0614 03/23/19 0614 Medications Medication Current Medications IV Flush (NS 3 ml) 3 ml PER PROTOCOL IV ; Start 03/12/19 at 18:00 Acetaminophen (Tylenol Tab) 650 mg Q6H PRN PO .PAIN 1-3 OR TEMP; Start 03/12/19 at 18:00 Acetaminophen/ Hydrocodone Bitart ([place] (5/325)) 1 tab Q6H PRN PO .PAIN 4-6; Start 03/12/19 at 18:00 Morphine Sulfate (morphine) 2 mg Q4H PRN IV .PAIN 7-10; Start 03/12/19 at 18:00 Oxycodone/ Acetaminophen (Percocet (5/ 325)) 1 tab Q4H PRN PO .MILD PAIN (1-3); Start 03/12/19 at 22:00 Oxycodone/ Acetaminophen (Percocet (5/ 325)) 2 tab Q4H PRN PO .MODERATE PAIN (4-6); Start 03/12/19 at 22:00 Ondansetron HCl (Zofran Inj) 4 mg Q6H PRN IV NAUSEA/VOMITING; Start 03/12/19 at 22:00 Zolpidem Tartrate (Ambien) 5 mg HS PRN PO INSOMNIA Last administered on 03/20at 21:11; Admin Dose 5 MG; Start 03/20/19 at 21:30 SHERWIN BONNER NP March 24, 2019 11:51
--- NOTE | 2019-03-24 12:38 | PN ---
Date/Time of Note Date/Time of Note DATE: 03/24/19 TIME: 12:38 Objective Vitals Vital Signs Date Temp Pulse Resp B/P (MAP) Pulse Ox O2 O2 Flow FiO2 Time Delivery Rate 03/24/19 97.8 88 18 126/80 99 08:48 (95) 03/23/19 Room Air 20:40 Intake and Output 03/23/19 03/23/19 03/24/19 1414:59 22:59 06:59 IntakeIntake Total 720 ml 400 ml 350 ml OutputOutput Total 300 ml 55 ml 10 ml BalanceBalance 420 ml 345 ml 340 ml Results Result Diagram: 03/23/19 0614 03/23/1914 Medications Medications Current Medications IV Flush (NS 3 ml) 3 ml PER PROTOCOL IV ; Start 03/12/19 at 18:00 Acetaminophen (Tylenol Tab) 650 mg Q6H PRN PO .PAIN 1-3 OR TEMP; Start 03/12/19 at 18:00 Acetaminophen/ Hydrocodone Bitart ([place] (5/325)) 1 tab Q6H PRN PO .PAIN 4-6; Start 03/12/19 at 18:00 Morphine Sulfate (morphine) 2 mg Q4H PRN IV .PAIN 7-10; Start 03/12/19 at 18:00 Oxycodone/ Acetaminophen (Percocet (5/ 325)) 1 tab Q4H PRN PO .MILD PAIN (1-3); Start 03/12/19 at 22:00 Oxycodone/ Acetaminophen (Percocet (5/ 325)) 2 tab Q4H PRN PO .MODERATE PAIN (4-6); Start 03/12/19 at 22:00 Ondansetron HCl (Zofran Inj) 4 mg Q6H PRN IV NAUSEA/VOMITING; Start 03/12/19 at 22:00 Zolpidem Tartrate (Ambien) 5 mg HS PRN PO INSOMNIA Last administered on 03/20/19at 21:11; Admin Dose 5 MG; Start 03/20/19 at 21:30 VTE Prophylaxis Risk score (from Ns)>0 risk: 5 SCD applied (from Nsg): Yes Lines/Catheters IV Catheter Type: Downs in Place: No Assessment/Plan Hospital Course Subjective Patient feels well, Objective Physical exam General: Patient is laying in bed and answers questions appropriately Mentation: Patient is alert and oriented 4, Head: Normocephalic atraumatic Eyes: EOMI, pupils reactive to light Neck: Supple, nontender, midline Respiratory: Clear to auscultation bilaterally Cardiovascular: regular rate, no obvious murmurs Gastrointestinal: Mildly-tender to palpation, bowel sounds heard. Drain still in place Neurological: Moves all extremities spontaneously Skin: Surgical site, bandage, CDI ASSESSMENT & PLAN 58-year-old male with history of methamphetamine abuse and no other significant comorbidities who came to the emergency room with abdominal pain with CT suggesting pneumoperitoneum, who was emergently taken to the OR and underwent patch of a perforated duodenal ulcer. 1. Perforated duodenal ulcer with pneumoperitoneum. -Status post oversew and plication of perforated duodenal ulcer on 03/04/2019. -Continue pain control. -Initiation of diet as per general surgery. -abx stopped 2. Sepsis with leukocytosis, tachycardia, and lactic acidosis secondary to underlying peritonitis. -abx stopped 3. Polysubstance abuse. -grommet worker consult. -Cessation advised. 4. Normocytic anemia. -Etiology unclear. -Monitor H&H closely. 5. Peptic ulcer disease. -Continue PPI. -Needs eventual gastroenterology evaluation including endoscopy. 6. Prediabetes. -Hemoglobin A1c 5.8. -Monitor glycemic trends. 7. Fluids, electrolytes, and nutrition. -SOft diet. 8. DVT prophylaxis. -Bilateral SCDs. 9. Plan. -Continue empiric antimicrobials. -Continue pain control. -Encourage frequent use of incentive spirometry and early ambulation. -Patient is homeless, community mental health social worker on board to help with placement, when patient gets stronger likely dischargeable, but discharging with drain in would be challenging JANUARY CALDERON March 24, 2019 12:38
[2019-03-24 14:33] VITALS: BP 119/71; PULSE 110; RESP 18
[2019-03-24 20:00] VITALS: BP 128/83; PULSE 105; RESP 18
[2019-03-25 02:00] VITALS: BP 119/65; PULSE 72; RESP 17
[2019-03-25 08:06] VITALS: BP 116/81; PULSE 80; RESP 18
--- NOTE | 2019-03-25 14:39 | PN ---
Date/Time of Note Date/Time of Note DATE: 03/25/19 TIME: 14:38 Objective Vitals Vital Signs Date Temp Pulse Resp B/P (MAP) Pulse Ox O2 O2 Flow FiO2 Time Delivery Rate 03/25/19 97.8 80 18 116/81 99 08:06 (93) 03/23/19 Room Air 20:40 Intake and Output 03/24/19 03/24/19 03/25/19 1515:00 23:00 07:00 IntakeIntake Total 480 ml 240 ml OutputOutput Total 200 ml 235 ml 1600 ml BalanceBalance 280 ml 5 ml -1600 ml Results Result Diagram: 03/23/19 0614 03/23/19 0614 Medications Medications Current Medications IV Flush (NS 3 ml) 3 ml PER PROTOCOL IV ; Start 03/12/19 at 18:00 Acetaminophen (Tylenol Tab) 650 mg Q6H PRN PO .PAIN 1-3 OR TEMP; Start 03/12/19 at 18:00 Acetaminophen/ Hydrocodone Bitart ([place] (5/325)) 1 tab Q6H PRN PO .PAIN 4-6; Start 03/12/19 at 18:00 Morphine Sulfate (morphine) 2 mg Q4H PRN IV .PAIN 7-10; Start 03/12/19 at 18:00 Oxycodone/ Acetaminophen (Percocet (5/ 325)) 1 tab Q4H PRN PO .MILD PAIN (1-3); Start 03/12/19 at 22:00 Oxycodone/ Acetaminophen (Percocet (5/ 325)) 2 tab Q4H PRN PO .MODERATE PAIN (4-6); Start 03/12/19 at 22:00 Ondansetron HCl (Zofran Inj) 4 mg Q6H PRN IV NAUSEA/VOMITING; Start 03/12/19 at 22:00 Zolpidem Tartrate (Ambien) 5 mg HS PRN PO INSOMNIA Last administered on 03/20/19at 21:11; Admin Dose 5 MG; Start 03/20/19 at 21:30 VTE Prophylaxis Risk score (from Ns)>0 risk: 2 SCD applied (from Ns): Yes Lines/Catheters IV Catheter Type: Downs in Place: No Assessment/Plan Hospital Course Subjective Patient feels well, Objective Physical exam General: Patient is laying in bed and answers questions appropriately Mentation: Patient is alert and oriented 4, Head: Normocephalic atraumatic Eyes: EOMI, pupils reactive to light Neck: Supple, nontender, midline Respiratory: Clear to auscultation bilaterally Cardiovascular: regular rate, no obvious murmurs Gastrointestinal: Mildly-tender to palpation, bowel sounds heard. Drain still in place Neurological: Moves all extremities spontaneously Skin: Surgical site, bandage, CDI ASSESSMENT & PLAN 58-year-old male with history of methamphetamine abuse and no other significant comorbidities who came to the emergency room with abdominal pain with CT suggesting pneumoperitoneum, who was emergently taken to the OR and underwent patch of a perforated duodenal ulcer. 1. Perforated duodenal ulcer with pneumoperitoneum. -Status post oversew and plication of perforated duodenal ulcer on 03/04/2019. -Continue pain control. -Initiation of diet as per general surgery. -abx stopped 2. Sepsis with leukocytosis, tachycardia, and lactic acidosis secondary to underlying peritonitis. -abx stopped 3. Polysubstance abuse. -mold loft worker consult. -Cessation advised. 4. Normocytic anemia. -Etiology unclear. -Monitor H&H closely. 5. Peptic ulcer disease. -Continue PPI. -Needs eventual gastroenterology evaluation including endoscopy. 6. Prediabetes. -Hemoglobin A1c 5.8. -Monitor glycemic trends. 7. Fluids, electrolytes, and nutrition. -SOft diet. 8. DVT prophylaxis. -Bilateral SCDs. 9. Plan. -Drain removed today, tiera removed from incisional site as well -Encourage frequent use of incentive spirometry and early ambulation. -Patient is homeless, social media analyst on board to help with placement JANUARY CALDERON March 25, 2019 14:39
[2019-03-25 14:42] VITALS: BP 144/84; PULSE 96; RESP 18
[2019-03-25 20:10] VITALS: BP 117/77; PULSE 102; RESP 18
[2019-03-25] MEDS: ZOLPIDEM 5 MG TAB PO PRN (23:56)
[2019-03-26 02:10] VITALS: BP 137/83; PULSE 98; RESP 18
[2019-03-26 08:02] VITALS: BP 111/68; PULSE 93; RESP 18
--- NOTE | 2019-03-26 12:23 | PN ---
Date/Time of Note Date/Time of Note DATE: 03/26/19 TIME: 12:21 Objective Vitals Vital Signs Date Temp Pulse Resp B/P (MAP) Pulse Ox O2 O2 Flow FiO2 Time Delivery Rate 03/26/19 97.4 93 18 111/68 98 08:02 (82) 03/23/19 Room Air 20:40 Intake and Output 03/25/19 03/25/19 03/26/19 1515:00 23:00 07:00 IntakeIntake Total 600 ml 240 ml 2000 ml OutputOutput Total 540 ml 200 ml 1725 ml BalanceBalance 60 ml 40 ml 275 ml Results Result Diagram: 03/26/19 0542 03/26/19 0542 Medications Medications Current Medications IV Flush (NS 3 ml) 3 ml PER PROTOCOL IV ; Start 03/12/19 at 18:00 Acetaminophen (Tylenol Tab) 650 mg Q6H PRN PO .PAIN 1-3 OR TEMP; Start 03/12/19 at 18:00 Acetaminophen/ Hydrocodone Bitart ([place] (5/325)) 1 tab Q6H PRN PO .PAIN 4-6; Start 03/12/19 at 18:00 Morphine Sulfate (morphine) 2 mg Q4H PRN IV .PAIN 7-10; Start 03/12/19 at 18:00 Oxycodone/ Acetaminophen (Percocet (5/ 325)) 1 tab Q4H PRN PO .MILD PAIN (1-3); Start 03/12/19 at 22:00 Oxycodone/ Acetaminophen (Percocet (5/ 325)) 2 tab Q4H PRN PO .MODERATE PAIN (4-6); Start 03/12/19 at 22:00 Ondansetron HCl (Zofran Inj) 4 mg Q6H PRN IV NAUSEA/VOMITING; Start 03/12/19 at 22:00 Zolpidem Tartrate (Ambien) 5 mg HS PRN PO INSOMNIA Last administered on 03/25/19at 23:56; Admin Dose 5 MG; Start 03/20/19 at 21:30 Pantoprazole (Protonix Tab) 40 mg BID@06,18 PO ; Start 03/26/19 at 18:00; Status UNV Sucralfate (Carafate Susp) 1 gm QID PO ; Start 03/26/19 at 13:00; Status UNV VTE Prophylaxis Risk score (from Nsg)>0 risk: 2 [place] [facility] Lines/Catheters IV Catheter Type: Downs in Place: No Assessment/Plan Hospital Course Subjective Patient feels well, Objective Physical exam General: Patient is laying in bed and answers questions appropriately Mentation: Patient is alert and oriented 4, Head: Normocephalic atraumatic Eyes: EOMI, pupils reactive to light Neck: Supple, nontender, midline Respiratory: Clear to auscultation bilaterally Cardiovascular: regular rate, no obvious murmurs Gastrointestinal: Mildly-tender to palpation, bowel sounds heard. Drain still in place Neurological: Moves all extremities spontaneously Skin: Surgical site, bandage, CDI ASSESSMENT & PLAN 58-year-old male with history of methamphetamine abuse and no other significant comorbidities who came to the emergency room with abdominal pain with CT suggesting pneumoperitoneum, who was emergently taken to the OR and underwent patch of a perforated duodenal ulcer. 1. Perforated duodenal ulcer with pneumoperitoneum. -Status post oversew and plication of perforated duodenal ulcer on 03/04/2019. -Continue pain control. -Initiation of diet as per general surgery. -abx stopped -Protonix twice daily -Carafate 4 times daily 2. Sepsis with leukocytosis, tachycardia, and lactic acidosis secondary to unde rlying peritonitis. -abx stopped 3. Polysubstance abuse. -tar pot worker consult. -Cessation advised. 4. Normocytic anemia. -Etiology unclear. -Monitor H&H closely. 5. Peptic ulcer disease. -Continue PPI. -Needs eventual gastroenterology evaluation including endoscopy. 6. Prediabetes. -Hemoglobin A1c 5.8. -Monitor glycemic trends. 7. Fluids, electrolytes, and nutrition. -soft diet. 8. DVT prophylaxis. -Bilateral SCDs. 9. Plan. -Drain removed tiera removed from incisional site , healing well -Patient is homeless, social services counselor on board to help with placement JANUARY CALDERON March 26, 2019 12:23
[2019-03-26] MEDS ORDERED: PANTOPRAZOLE (EC) 40 MG TAB PO ONE (12:30)
[2019-03-26] MEDS: SUCRALFATE (100 MG/ML) 10ML CUP PO SCH ×3 (13:33→20:47)
[2019-03-26 14:45] VITALS: BP 127/71; PULSE 104; RESP 16
[2019-03-26 15:15] VITALS: PULSE 98
[2019-03-26 20:00] VITALS: BP 121/71; PULSE 100; RESP 18
[2019-03-26] MEDS: PANTOPRAZOLE (EC) 40 MG TAB PO SCH (20:47)
[2019-03-27 02:00] VITALS: BP 125/70; PULSE 93; RESP 17
[2019-03-27] MEDS: PANTOPRAZOLE (EC) 40 MG TAB PO SCH ×2 (05:31→17:22)
[2019-03-27 08:01] VITALS: BP 127/80; PULSE 79; RESP 17
[2019-03-27] MEDS: SUCRALFATE (100 MG/ML) 10ML CUP PO SCH ×4 (08:43→20:59)
[2019-03-27 14:07] VITALS: BP 135/74; PULSE 100; RESP 18
--- NOTE | 2019-03-27 18:02 | PN ---
Date/Time of Note Date/Time of Note DATE: 03/27/19 TIME: 17:57 Assessment/Plan VTE Prophylaxis Risk score (from [facility])>0 risk: 1 SCD applied (from Ns): Yes Pharmacological prophylaxis: NA/contraindicated Pharm contraindication: low risk/ambulating Lines/Catheters [facility] Saline Lock Urinary Cath still in place: No Assessment/Plan Assessment/Plan 1. Perforated duodenal ulcer with pneumoperitoneum - s/p oversew and plication of perforated duodenal ulcer on 03/04/2019. - doing well and tolerating PO intake - continue on Protonix twice daily and Carafate 2. Polysubstance abuse. - used building materials yard worker consultation appreciated - Cessation advised 3. Normocytic anemia. - Etiology unclear. - Monitor H&H closely. 4. Peptic ulcer disease. - Continue PPI. - Will need outpatient follow up 5. Prediabetes. - A1c 5.8. 6. Disposition - CM/MERNA on board for [facility] placement given homeless status Result Diagram: 03/27/19 0455 03/27/19 0455 Results 24hrs Laboratory Tests Test 03/27/19 04:55 White Blood Count 10.8 Red Blood Count 2.86 L Hemoglobin 8.2 L Hematocrit 26.3 L Mean Corpuscular Volume 92.0 Mean Corpuscular Hemoglobin 28.7 L Mean Corpuscular Hemoglobin Concent 31.2 L Red Cell Distribution Width 16.4 H Platelet Count 1443 H Mean Platelet Volume 7.6 Immature Granulocytes % 1.000 H Neutrophils % 60.3 Lymphocytes % 25.1 Monocytes % 8.3 Eosinophils % 4.3 Basophils % 1.0 Nucleated Red Blood Cells % 0.0 Immature Granulocytes # 0.110 H Neutrophils # 6.5 Lymphocytes # 2.7 Monocytes # 0.9 Eosinophils # 0.5 Basophils # 0.1 Nucleated Red Blood Cells # 0.0 Sodium Level 139 Potassium Level 4.8 Chloride Level 104 Carbon Dioxide Level 31 Anion Gap 4 L Blood Urea Nitrogen 14 Creatinine 0.73 Est Glomerular Filtrat Rate mL/min > 60 Glucose Level 96 Calcium Level 9.3 Phosphorus Level 4.0 Magnesium Level 2.1 Subjective 24 Hr Interval Summary Free Text/Dictation Patient doing well and denies any acute abdominal pain. Tolerating PO intake. Exam/Review of Systems Exam Vitals Vital Signs Date Temp Pulse Resp B/P (MAP) Pulse Ox O2 O2 Flow FiO2 Time Delivery Rate 03/27/19 98.3 100 18 135/74 100 Room Air 14:07 (94) Intake and Output 03/26/19 03/26/19 03/27/19 1515:00 23:00 07:00 IntakeIntake Total 240 ml 1500 ml 480 ml OutputOutput Total 375 ml 800 ml 1700 ml BalanceBalance -135 ml 700 ml -1220 ml Exam General: Patient is laying in bed and answers questions appropriately Eyes: EOMI, pupils reactive to light Neck: Supple, nontender, midline Respiratory: Clear to auscultation bilaterally. no wheezing or rhonchi Cardiovascular: regular rate and rhythm, no obvious murmurs Gastrointestinal: soft, nontender to palpation, bowel sounds heard. Ext: Moves all extremities spontaneously Skin: incision site healing Results Results 24hrs Laboratory Tests Test 03/27/19 04:55 White Blood Count 10.8 Red Blood Count 2.86 L Hemoglobin 8.2 L Hematocrit 26.3 L Mean Corpuscular Volume 92.0 Mean Corpuscular Hemoglobin 28.7 L Mean Corpuscular Hemoglobin Concent 31.2 L Red Cell Distribution Width 16.4 H Platelet Count 1443 H Mean Platelet Volume 7.6 Immature Granulocytes % 1.000 H Neutrophils % 60.3 Lymphocytes % 25.1 Monocytes % 8.3 Eosinophils % 4.3 Basophils % 1.0 Nucleated Red Blood Cells % 0.0 Immature Granulocytes # 0.110 H Neutrophils # 6.5 Lymphocytes # 2.7 Monocytes # 0.9 Eosinophils # 0.5 Basophils # 0.1 Nucleated Red Blood Cells # 0.0 Sodium Level 139 Potassium Level 4.8 Chloride Level 104 Carbon Dioxide Level 31 Anion Gap 4 L Blood Urea Nitrogen 14 Creatinine 0.73 Est Glomerular Filtrat Rate mL/min > 60 Glucose Level 96 Calcium Level 9.3 Phosphorus Level 4.0 Magnesium Level 2.1 Medications Medication Current Medications IV Flush (NS 3 ml) 3 ml PER PROTOCOL IV ; Start 03/12/19 at 18:00 Acetaminophen (Tylenol Tab) 650 mg Q6H PRN PO .PAIN 1-3 OR TEMP; Start 03/12/19 at 18:00 Acetaminophen/ Hydrocodone Bitart ([place] (5/325)) 1 tab Q6H PRN PO .PAIN 4-6; Start 03/12/19 at 18:00 Morphine Sulfate (morphine) 2 mg Q4H PRN IV .PAIN 7-10; Start 03/12/19 at 18:00 Oxycodone/ Acetaminophen (Percocet (5/ 325)) 1 tab Q4H PRN PO .MILD PAIN (1-3); Start 03/12/19 at 22:00 Oxycodone/ Acetaminophen (Percocet (5/ 325)) 2 tab Q4H PRN PO .MODERATE PAIN (4-6); Start 03/12/19 at 22:00 Ondansetron HCl (Zofran Inj) 4 mg Q6H PRN IV NAUSEA/VOMITING; Start 03/12/19 at 22:00 Zolpidem Tartrate (Ambien) 5 mg HS PRN PO INSOMNIA Last administered on 03/25/19at 23:56; Admin Dose 5 MG; Start 03/20/19 at 21:30 Pantoprazole (Protonix Tab) 40 mg BID@06,18 PO Last administered on 03/27/19at 17:22; Admin Dose 40 MG; Start 03/26/19 at 20:00 Sucralfate (Carafate Susp) 1 gm QID PO Last administered on 03/27/19 17:22; Admin Dose 1 GM; Start 03/26/19 at 13:00 KATIA CORDERO MD March 27, 2019 18:02
[2019-03-27 20:00] VITALS: BP 131/73; PULSE 93; RESP 17
[2019-03-27] MEDS: ZOLPIDEM 5 MG TAB PO PRN (20:59)
[2019-03-28 02:00] VITALS: BP 138/74; PULSE 78; RESP 17
[2019-03-28] MEDS: PANTOPRAZOLE (EC) 40 MG TAB PO SCH ×2 (05:54→17:49)
[2019-03-28 08:03] VITALS: BP 125/80; PULSE 90; RESP 18
--- NOTE | 2019-03-28 10:18 | PN ---
Date/Time of Note Date/Time of Note DATE: 03/28/19 TIME: 10:16 Assessment/Plan VTE Prophylaxis Risk score (from Ns)>0 risk: 2 SCD applied (from [facility]): Yes Pharmacological prophylaxis: NA/contraindicated Pharm contraindication: low risk/ambulating Lines/Catheters [facility] Type [facility]from [facility] Saline Lock Urinary Cath still in place: No Assessment/Plan Assessment/Plan 1. Perforated duodenal ulcer with pneumoperitoneum - s/p oversew and plication of perforated duodenal ulcer on 03/04/2019. - doing well and tolerating PO intake 2. Polysubstance abuse. - child protective services social worker consultation appreciated - Cessation advised 3. Normocytic anemia. - Etiology unclear. - Monitor H&H closely. 4. Peptic ulcer disease. - Continue PPI. - Will need outpatient follow up 5. Prediabetes. - A1c 5.8. 6. Disposition - Medically stable for discharge once accepted to interim housing Result Diagram: 03/27/19 0455 03/27/19 0455 Subjective 24 Hr Interval Summary Free Text/Dictation Patient is doing well and in no acute distress. tolerating PO intake and no issues with BMs. Exam/Review of Systems Exam Vitals Vital Signs Date Temp Pulse Resp B/P (MAP) Pulse Ox O2 O2 Flow FiO2 Time Delivery Rate 03/28/19 98.0 90 18 125/80 100 08:03 (95) 03/27/19 Room Air 14:07 Intake and Output 03/27/19 03/27/19 03/28/19 1414:59 22:59 06:59 IntakeIntake Total 800 ml 400 ml OutputOutput Total 600 ml 400 ml 2250 ml BalanceBalance 200 ml 0 ml -2250 ml Exam General: Patient is laying in bed and answers questions appropriately Eyes: EOMI, pupils reactive to light Neck: Supple, nontender, midline Respiratory: Clear to auscultation bilaterally. no wheezing or rhonchi Cardiovascular: regular rate and rhythm, no obvious murmurs Gastrointestinal: soft, nontender to palpation, bowel sounds heard. Ext: Moves all extremities spontaneously Skin: incision site healing Medications Medication Current Medications IV Flush (NS 3 ml) 3 ml PER PROTOCOL IV ; Start 03/12/19 at 18:00 Acetaminophen (Tylenol Tab) 650 mg Q6H PRN PO .PAIN 1-3 OR TEMP; Start 03/12/19 at 18:00 Acetaminophen/ Hydrocodone Bitart ([place] (5/325)) 1 tab Q6H PRN PO .PAIN 4-6; Start 03/12/19 at 18:00 Morphine Sulfate (morphine) 2 mg Q4H PRN IV .PAIN 7-10; Start 03/12/19 at 18:00 Oxycodone/ Acetaminophen (Percocet (5/ 325)) 1 tab Q4H PRN PO .MILD PAIN (1-3); Start 03/12/19 at 22:00 Oxycodone/ Acetaminophen (Percocet (5/ 325)) 2 tab Q4H PRN PO .MODERATE PAIN (4-6); Start 03/12/19 at 22:00 Ondansetron HCl (Zofran Inj) 4 mg Q6H PRN IV NAUSEA/VOMITING; Start 03/12/19 at 22:00 Zolpidem Tartrate (Ambien) 5 mg HS PRN PO INSOMNIA Last administered on 03/27/19at 20:59; Admin Dose 5 MG; Start 03/20/19 at 21:30 Pantoprazole (Protonix Tab) 40 mg BID@06,18 PO Last administered on 03/28/19at 05:54; Admin Dose 40 MG; Start 03/26/19 at 20:00 Sucralfate (Carafate Susp) 1 gm QID PO Last administered on 03/27/19at 20:59; Admin Dose 1 GM; Start 03/26/19 at 13:00 KATIA CORDERO MD March 28, 2019 10:18
[2019-03-28] MEDS ORDERED: PANT40TA4 PO (10:23)
[2019-03-28] MEDS ORDERED: TRAZ-111 PO (10:23)
[2019-03-28] MEDS: SUCRALFATE (100 MG/ML) 10ML CUP PO SCH ×4 (10:23→20:17)
[2019-03-28] MEDS ORDERED: SUCR1TAB56 PO (10:23)
--- NOTE | 2019-03-28 10:29 | PDOCDIS ---
Discharge Instructions DIAGNOSIS Discharge Diagnosis 1. Perforated duodenal ulcer with pneumoperitoneum s/p oversew and plication of perforated duodenal ulcer on 03/04/2019. 2. Polysubstance abuse. 3. Normocytic anemia. 4. Peptic ulcer disease. 5. Prediabetes. CONDITION [id number] Patient Condition: [id number] Stable HOME CARE INSTRUCTIONS: [id number] Diet Instructions: [id number] Low Fat /Cholesterol ACTIVITY: [id number] Activity Restrictions: [id number] No Restrictions FOLLOW UP/APPOINTMENTS Follow-up Plan 1. Follow up with your primary care physician in 1 week. If you do not have one, you can go to [facility] or make an appointment with Dr. Tom Hui 2. You will need to ask your primary care physician for a referral to GI specialist to keep a watch of your peptic ulcer disease. You will need an endoscopy in 6-8 weeks to evaluate 3. Take Pantoprazole twice a day for the next 30 days then continue daily 4. Take carafate four times a day for the next 12 days to complete a 2 week course 5. Take Trazodone as needed to help with sleep 6. If experiencing any concerning symptoms, please go to your closest emergency department REFERRALS Other Referrals Tom Hui MD Specialty : Internal Medicine Office Address [address] [place] [id number] Office KATIA CORDERO MD March 28, 2019 10:29
[2019-03-28 14:00] VITALS: BP 130/79; PULSE 88; RESP 18
[2019-03-28 20:18] VITALS: BP 127/68; PULSE 103; RESP 18
[2019-03-29 02:59] VITALS: BP 125/75; PULSE 85; RESP 20
[2019-03-29] MEDS: PANTOPRAZOLE (EC) 40 MG TAB PO SCH (05:45)
[2019-03-29 08:00] VITALS: BP 123/81; PULSE 75; RESP 18
[2019-03-29] MEDS: SUCRALFATE (100 MG/ML) 10ML CUP PO SCH (08:52)
--- NOTE | 2019-03-29 10:02 | PN ---
Date/Time of Note Date/Time of Note DATE: 03/29/19 TIME: 10:02 Assessment/Plan VTE Prophylaxis Risk score (from Ns)>0 risk: 1 SCD applied (from Ns): Yes Pharmacological prophylaxis: NA/contraindicated Pharm contraindication: low risk/ambulating Lines/Catheters IV C[facility]ter Type (from [facility] Saline Lock Urinary Cath still in place: No Assessment/Plan Assessment/Plan 1. Perforated duodenal ulcer with pneumoperitoneum - s/p oversew and plication of perforated duodenal ulcer on 03/04/2019. - doing well and tolerating PO intake 2. Polysubstance abuse. - rail signal worker consultation appreciated - Cessation advised 3. Normocytic anemia. - Etiology unclear. - Monitor H&H closely. 4. Peptic ulcer disease. - Continue PPI and carafate - Will need outpatient follow up with GI 5. Prediabetes. - A1c 5.8. 6. Disposition - Medically stable for discharge Result Diagram: 03/27/19 0455 03/27/19 0455 Subjective 24 Hr Interval Summary Free Text/Dictation Patient is doing well and denies any acute issues. Concerned about going to [place] due to safety but discussed only interim housing. Exam/Review of Systems Exam Vitals Vital Signs Date Temp Pulse Resp B/P (MAP) Pulse Ox O2 O2 Flow FiO2 Time Delivery Rate 03/29/19 97.6 75 18 123/81 100 Room Air 08:00 (95) Intake and Output 03/28/19 03/28/19 03/29/19 1515:00 23:00 07:00 IntakeIntake Total 1400 ml 900 ml OutputOutput Total 700 ml BalanceBalance -700 ml 1400 ml 900 ml Exam General: Patient is laying in bed and answers questions appropriately Eyes: EOMI, pupils reactive to light Neck: Supple, nontender, midline Respiratory: Clear to auscultation bilaterally. no wheezing or rhonchi Cardiovascular: regular rate and rhythm, no obvious murmurs Gastrointestinal: soft, nontender to palpation, bowel sounds heard. Ext: Moves all extremities spontaneously Skin: incision site healing with scabbing appreciated. no discharge or drainage Medications Medication Current Medications IV Flush (NS 3 ml) 3 ml PER PROTOCOL IV ; Start 03/12/19 at 18:00 Acetaminophen (Tylenol Tab) 650 mg Q6H PRN PO .PAIN 1-3 OR TEMP; Start 03/12/19 at 18:00 Acetaminophen/ Hydrocodone Bitart ([place] (5/325)) 1 tab Q6H PRN PO .PAIN 4-6; Start 03/12/19 at 18:00 Morphine Sulfate (morphine) 2 mg Q4H PRN IV .PAIN 7-10; Start 03/12/19 at 18:00 Oxycodone/ Acetaminophen (Percocet (5/ 325)) 1 tab Q4H PRN PO .MILD PAIN (1-3); Start 03/12/19 at 22:00 Oxycodone/ Acetaminophen (Percocet (5/ 325)) 2 tab Q4H PRN PO .MODERATE PAIN (4-6); Start 03/12/19 at 22:00 Ondansetron HCl (Zofran Inj) 4 mg Q6H PRN IV NAUSEA/VOMITING; Start 03/12/19 at 22:00 Zolpidem Tartrate (Ambien) 5 mg HS PRN PO INSOMNIA Last administered on 03/27/19at 20:59; Admin Dose 5 MG; Start 03/20/19 at 21:30 Pantoprazole (Protonix Tab) 40 mg BID@06,18 PO Last administered on 03/29/19at 05:45; Admin Dose 40 MG; Start 03/26/19 at 20:00 Sucralfate (Carafate Susp) 1 gm QID PO Last administered on 03/29/19at 08:52; Admin Dose 1 GM; Start 03/26/19 at 13:00 KATIA CORDERO MD March 29, 2019 10:02
--- NOTE | 2019-03-29 15:17 | DS ---
Date/Time of Note Date/Time of Note DATE: 03/29/19 TIME: 15:16 Discharge Summary Admission/Discharge Info Admit Date/Time Mar 12, 2019 at 18:29 Discharge Date/Time March 29, 2019 at 11:45 Discharge Diagnosis 1. Perforated duodenal ulcer with pneumoperitoneum s/p oversew and plication of perforated duodenal ulcer on 03/04/2019. 2. Polysubstance abuse. 3. Normocytic anemia. 4. Peptic ulcer disease. 5. Prediabetes. Patient Condition: Stable Consults General Surgery- Dr. Artis Infectious disease- Dr Huntley Procedures Date/Time of Note Date/Time of Note DATE: 03/12/19 TIME: 21:43 Operative Report Procedure Date: Mar 12, 2019 Preoperative Diagnosis Perforated viscus and pneumoperitoneum Postoperative Diagnosis Perforated duodenal ulcer with pneumoperitoneum Operation/Procedure Performed [place] and plication of perforated duodenal ulcer Surgeon Devante Artis MD Hx of Present Illness This is a 58-year-old male with a history of methamphetamine abuse who presented to ER complaining of abdominal pain for the past 3 days. Pain has been diffuse. In the ER he is found to have pneumoperitoneum and perforated viscus. Initial white count 25,000. Lactic acid was elevated. Patient was taken to the OR and had repair of perforated duodenal ulcer. Patient is currently admitted to ICU postop and is in stable condition. He is asking for food, but he said he has not passed gas even though he wants to. His abdomen however soft with hypoactive bowel sounds. Hospital Course Patient was admitted to ICU for close monitoring following surgical intervention. He was started on IV antibiotics for sepsis secondary to peritonitis. ID was consulted for antibiotc recommendations and duration of treatment. Patient had return of bowel function and diet was slowly advanced as tolerated. He was downgraded to med/surg given improvement in overall condition and was tolerating regular diet. He progressed well with physical therapy and had no other acute issues. He completed a course of antibiotics and remained afebrile. He was seen by social media sr strategy manager for resources given homelessness and substance abuse. He was accepted to [facility] program and was discharged in stable condition. He was advised to continue taking PPI and Carafate and follow up with PCP and GI specialist as outpatient. Home Meds Active Scripts Trazodone Hcl* (Trazodone Hcl*) 50 Mg Tablet, 25 MG PO QHS for 30 Days, #30 TAB Prov:KATIA CORDERO MD 03/28/19 Sucralfate* (Carafate*) 1 Gm Tab, 1 GM PO Q6 for 12 Days, #48 TAB Prov:KATIA CORDERO MD 03/28/19 Pantoprazole* (Pantoprazole*) 40 Mg Tablet.dr 40 MG PO BID@06,18 for 30 Days, #60 TAB 1 Refill Prov:KATIA CORDERO MD 03/28/19 Follow-up Plan 1. Follow up with your primary care physician in 1 week. If you do not have one, you can go to [facility] or make an appointment with Dr. Tom Hui 2. You will need to ask your primary care physician for a referral to GI specialist to keep a watch of your peptic ulcer disease. You will need an endoscopy in 6-8 weeks to evaluate 3. Take Pantoprazole twice a day for the next 30 days then continue daily 4. Take carafate four times a day for the next 12 days to complete a 2 week course 5. Take Trazodone as needed to help with sleep 6. If experiencing any concerning symptoms, please go to your closest emergency department Primary Care Provider Care Physician No Primary Time spent on discharge: > 30 minutes KATIA CORDERO MD March 29, 2019 15:17
== END 2019-03-29 11:45 | disposition home or self-care (01) | DRG 853 ==
LOC: E/R 15:39 → REC 18:29 → PP2 20:13 → ICU 22:13 → PP2 03-13 13:15
PROVIDERS: ADMIT Internal Medicine; ATTEND Internal Medicine
PROC: 0DU907Z Supplement Duodenum with Autologous Tissue Substitute, Open Approach (ICD-10-PCS; 2019-03-12)
PROC: 0DQ90ZZ Repair Duodenum, Open Approach (ICD-10-PCS; principal; 2019-03-12 20:00)
DX: A41.9 Sepsis, unspecified organism (principal); K26.5 Chronic or unspecified duodenal ulcer with perforation; K65.9 Peritonitis, unspecified; E87.2 Acidosis; D64.9 Anemia, unspecified; R73.03 Prediabetes
CPT/HCPCS: 71045; 74177; 80048; 80053; 80061; 80202; 80307; 81001; 82150; 83036; 83605; 83690; 83735; 84100; 84443; 84484; 85014; 85018; 85025; 85610; 85730; 87070; 87075; 87081; 87086; 87338; 93005; 96374; 96375; 97110; 97116; 97161; C9113; J0692; J2001; J2250; J2270; J2370; J2405; J2543; J2795; J3010; J3370; J3480; J7030; J7050; Q9967; Q9968